=== PATIENT | female | born 1985 | race Caucasian/White ===

== ENCOUNTER 2019-10-03 12:45 | Emergency (ER) | payer OTHER, SELFPAY ==
[2019-10-03 12:51] VITALS: BP 126/72; PULSE 108; RESP 16; TEMP 36.7; O2SAT 100
--- NOTE | 2019-10-03 13:06 | ED.GENADULT ---
HPI - General Adult General Chief complaint: Urogenital-Female Stated complaint: kidney pain Time Seen by Provider: 10/03/19 13:06 Source: patient and RN notes reviewed Mode of arrival: ambulatory Limitations: no limitations History of Present Illness HPI narrative: 34-year-old female presents with urinary complaints for the past 4-5 days. Dysuria consist of RT flank pain. Tiffany says she has back pain prior to burning, frequency, and urgency once she gets to these symptoms she usually have to seek emergency care.? No treatment.? Denies injuries. Denies fever or chills. No significant pelvic pain. No abnormal vaginal discharge.? No concerns for STDs. Exacerbating factors urinating.? Denies hematuria or vaginal bleeding. Denies being , LMP 09/29/19. Denies nausea, vomiting, and abdominal pain.? Tolerating liquids well.? Remains active. The patient reports she have not been diagnosed with COVID-19. The patient reports she is not waiting for the results of a COVID-19 lab test. Tiffany says her and her family was tested 3 weeks ago and was NEGATIVE. The patient reports she do not have fever, chills, weakness, fatigue, myalgia, or facial swelling. The patient reports she do not have a new or worsening cough or shortness of breath. Denies chest pain. The patient reports she do not have any rhinorrhea, congestion, sore throat, and diarrhea. Denies recent traveling. Denies concerns for COVID-19 or exposures been home with limited outdoor exposure except for essential household needs, work, and return home. At this time, patient is not suspected of having COVID-19. Some parts of this dictation were generated by voice recognition software and may contain typographical and/or grammatical inaccuracies. Related Data Allergies Allergy/AdvReac Type Severity Reaction Status Date / Time cyclobenzaprine Allergy Severe Rash Verified 10/03/19 13:02 Sulfa (Sulfonamide Allergy Severe Dyspnea / Verified 10/03/19 13:02 Antibiotics) SOB amoxicillin Allergy Intermediate Rash Verified 10/03/19 13:02 tramadol Allergy Intermediate Rash Verified 10/03/19 13:02 Penicillins AdvReac Intermediate Rash Verified 10/03/19 13:02 Review of Systems Review of Systems: Narrative: CONSTITUTIONAL: Denies fever, chills, sweats. EYES: Denies visual changes, redness, discharge. ENT: Denies rhinorrhea, congestion, sore throat, otalgia. CARDIOVASCULAR: Denies chest pain, palpitations, edema. RESPIRATORY: Denies dyspnea, wheezing, cough. GASTROINTESTINAL: Denies abdominal pain, nausea, vomiting, diarrhea. GENITOURINARY: Complains of dysuria consists of RT flank pain. Denies burning, frequency, and urgency, hematuria, abnormal discharge. SKIN: Denies rash or itching. MUSCULOSKELETAL: Denies acute back pain, joint pain, or myalgia. NEUROLOGIC: Denies numbness or focal weakness. PSYCHIATRIC: Denies anxiety or depression. All systems reviewed & are unremarkable except as noted in HPI and below. [facility] Past Medical History Medical History (Updated 10/03/19 @ 13:31 by SILVIA Holguin) Anxiety Asthma delivery delivered Factor V Leiden History of manic depressive disorder Manic bipolar I disorder Obese Post traumatic stress disorder (PTSD) Surgical History Surgical History (Updated 10/03/19 @ 13:31 by SILVIA Holguin) H/O section History of adenoidectomy History of dilation and curettage History of tonsillectomy Hx of sinus surgery Family History Family History (Updated 10/03/19 @ 13:34 by SILVIA Holguin) Father Diabetes mellitus Cerebrovascular accident Factor V Leiden Obese Mother Depression Obese Bipolar disorder Cervical cancer Social History Social History (Updated 10/03/19 @ 13:37 by SILVIA Holguin) Smoking status: Former smoker Tobacco type: cigarettes Smoking end date: 03/07/07 Additional smoking assessment comments: Smoked for 9 years Living arrangements: [place]
--- NOTE | 2019-10-03 13:21 | PC.NURSE ---
NO UC ORDERED PER SONIDO
[2019-10-03 13:25] VITALS: PULSE 100
== END 2019-10-03 13:25 | disposition home or self-care (01) ==
PROVIDERS: Emergency Provider Nurse Practitioner Family; PCP Family Medicine
DX: R30.0 Dysuria (principal); Z87.891 Personal history of nicotine dependence; J45.909 Unspecified asthma, uncomplicated; D68.51 Activated protein C resistance
CPT/HCPCS: 81003; 99213; G0463

== ENCOUNTER 2020-09-25 16:44 | Emergency (ER) | payer OTHER, SELFPAY ==
[2020-09-25 16:50] VITALS: BP 158/89; PULSE 115; RESP 20; TEMP 37.1; O2SAT 98
--- NOTE | 2020-09-25 16:57 | ED.DIZZY ---
HPI - Dizziness General Chief Complaint: Dizziness Stated Complaint: dizzy walking alyson renner Time Seen by Provider: 09/25/20 16:58 Source: patient and RN notes reviewed History of Present Illness HPI Narrative: Patient is a 35-year-old female who presents the urgent care with complaints of dizziness. Patient states that it started Tuesday with ringing in the ears and then she felt loopy and dizzy on Tuesday . Patient states that symptoms started to improve slightly and then Tuesday exacerbated again after taking a shower and the water getting in her ears. Patient states that her friend told her that she was walking sideways . Patient states that she feels that the room is spinning on occasion but is not consistent. Patient denies of any recent head injury or new medications. Patient denies of any use of [id number] medication for symptoms. Denies of any sick symptoms. Denies of any known exposure to Covid. No other acute complaints. No acute distress noted. Patient aware of the plan of care. Some parts of this dictation were generated by voice recognition software and may contain typographical and/or grammatical inaccuracies. Related Data Allergies Allergy/AdvReac Type Severity Reaction Status Date / Time cyclobenzaprine Allergy Severe Rash Verified 09/25/20 16:51 Sulfa (Sulfonamide Allergy Severe Dyspnea / Verified 09/25/20 16:51 Antibiotics) SOB amoxicillin Allergy Intermediate Rash Verified 09/25/20 16:51 tramadol Allergy Intermediate Rash Verified 09/25/20 16:51 Penicillins AdvReac Intermediate Rash Verified 09/25/20 16:51 Review of Systems Review of Systems: Narrative: CONSTITUTIONAL: Denies fever, chills, or sweats. EYES: Denies visual changes, redness, or discharge. ENT: Denies rhinorrhea, congestion, sore throat, or otalgia. Reports of intermittent tinnitus CARDIOVASCULAR: Denies chest pain, palpitations, or edema. RESPIRATORY: Denies cough or dyspnea. GASTROINTESTINAL: Denies abdominal pain, nausea, vomiting, or diarrhea. GENITOURINARY: Denies dysuria or hematuria. SKIN: Denies rash or itching. MUSCULOSKELETAL: Denies back pain, joint pain, or myalgia. NEUROLOGIC: Denies headache, numbness, or weakness. Reports of intermittent dizziness All other systems reviewed are negative, except as documented in HPI. [facility] Past Medical History Medical History (Updated 09/25/20 @ 17:17 by SILVIA Fuller) Anxiety Asthma delivery delivered Factor V Leiden History of manic depressive disorder Manic bipolar I disorder Obese Post traumatic stress disorder (PTSD) Surgical History Surgical History (Updated 10/03/19 @ 13:31 by SILVIA Holguin) H/O section History of adenoidectomy History of dilation and curettage History of tonsillectomy Hx of sinus surgery Family History Family History (Updated 10/03/19 @ 13:34 by SILVIA Holguin) Father Diabetes mellitus Cerebrovascular accident Factor V Leiden Obese Mother Depression Obese Bipolar disorder Cervical cancer Social History Social History (Updated 10/03/19 @ 13:37 by SILVIA Holguin) Smoking status: Former smoker Tobacco type: cigarettes Smoking end date: 03/07/07 Additional smoking assessment comments: Smoked for 9 years Gender identity (if verbalized by the patient): Female Comments At the time of my signature, I reviewed and agree with the nursing past medical, surgical, social, and family history. There is no relevant family history pertinent to the patient complaint. Exam Narrative: Exam Narrative: GENERAL: This is a well-nourished, well-developed patient, in no apparent distress. HEAD: normocephalic, atraumatic. EYES: PERRL. Sclera clear/white. Vision is grossly intact. EARS: External ears normal, auditory canals clear and without drainage, mild fluid noted behind bilateral TMs without otitis. TMs normal without perforation. Hearing grossly intact. NOSE: External nose n
== END 2020-09-25 17:30 | disposition home or self-care (01) ==
PROVIDERS: Emergency Provider Nurse Practitioner Family; PCP Family Medicine
DX: R42 Dizziness and giddiness (principal); Z87.891 Personal history of nicotine dependence
CPT/HCPCS: 99213; G0463

== ENCOUNTER 2021-12-03 09:08 | Emergency (ER) | payer OTHER, SELFPAY ==
--- NOTE | 2021-12-03 09:19 | ED.BACK ---
HPI - Back Pain/Injury General Chief Complaint: Back Pain/Injury Stated Complaint: Back Pain Time Seen by Provider: 12/03/21 09:57 Source: patient and RN notes reviewed Mode of arrival: ambulatory Limitations: no limitations History of Present Illness HPI Narrative: 36-year-old female presents with concern for left-sided mid back pain. She reports 2 weeks ago she slept in a car for 4 days, she reports she had some mild back pain after that. Reports over the last 2 weeks she is taken anti-inflammatories used heat, ice without improvement. Reports the pain is worsened over the last 4 days causing her trouble sleeping at night. She denies perianal anesthesia, loss of bowel or bladder function, weakness in any extremity, abdominal pain, fever. She denies any direct trauma or injury. She denies urine frequency, dysuria, hematuria. Reports pain is worsened by movements, bending, twisting. MD elicited complaint: back pain Related Data Home Medications Medication Instructions Recorded Confirmed ergocalciferol (vitamin D2) 1,250 12/03/21 mcg (50,000 unit) capsule febuxostat 40 mg tablet (Uloric) mg 12/03/21 indomethacin 50 mg capsule mg 12/03/21 lisinopril 20 tablet 12/03/21 mg-hydrochlorothiazide 12.5 mg tablet montelukast 10 mg tablet mg 12/03/21 Allergies Allergy/AdvReac Type Severity Reaction Status Date / Time cyclobenzaprine Allergy Severe Rash Verified 12/03/21 10:11 Sulfa (Sulfonamide Allergy Severe Dyspnea / Verified 12/03/21 10:11 Antibiotics) SOB amoxicillin Allergy Intermediate Rash Verified 12/03/21 10:11 tramadol Allergy Intermediate Rash Verified 12/03/21 10:11 Penicillins AdvReac Intermediate Rash Verified 12/03/21 10:11 Review of Systems Review of Systems: CONSTITUTIONAL: Denies malaise, chills, sweats, or fever. CARDIOVASCULAR: Denies chest pain, palpitations, or edema. RESPIRATORY: Denies cough or dyspnea. GASTROINTESTINAL: Denies abdominal pain, nausea, vomiting, diarrhea, loss of bowel function GENITOURINARY: Denies dysuria, hematuria, frequency, loss of bladder function. SKIN: Denies rash or itching. MUSCULOSKELETAL: Reports left mid back pain NEUROLOGIC: Denies numbness, weakness, or headache. All systems reviewed & are unremarkable except as noted in HPI and below PMF[facility] Past Medical History Medical History (Updated 12/03/21 @ 10:10 by Kenna Walker NP) Anxiety Asthma delivery delivered Factor V Leiden History of manic depressive disorder Manic bipolar I disorder Obese Post traumatic stress disorder (PTSD) Surgical History Surgical History (Updated 10/03/19 @ 13:31 by SILVIA Holguin) H/O section History of adenoidectomy History of dilation and curettage History of tonsillectomy Hx of sinus surgery Family History Family History (Updated 10/03/19 @ 13:34 by SILVIA Holguin) Father Diabetes mellitus Cerebrovascular accident Factor V Leiden Obese Mother Depression Obese Bipolar disorder Cervical cancer Social History Social History (Updated 10/03/19 @ 13:37 by SILVIA Holguin) Smoking status: Former smoker Tobacco type: cigarettes Smoking end date: 03/07/07 Additional smoking assessment comments: Smoked for 9 years Gender identity (if verbalized by the patient): Female Sexual Orientation (if Verbalized by the Patient): Straight or Heterosexual Comments At time of signature, agree with nursing past medical, surgical, social and family history. There is no relevant family history pertinent to the presenting complaint Exam Narrative: GENERAL: Well-appearing, well-nourished, and in no acute distress. HEAD: Normocephalic, atraumatic. EYES: PERRLA and EOMI. NECK: Supple. No lymphadenopathy. CHEST: Clear to auscultation. No respiratory distress. HEART: Regular rate and rhythm. Distal pulses palpable and equal, cap refill <3 seconds ABDOMEN: Soft, nontender, nondistended, normal active bowel
[2021-12-03 09:20] VITALS: BP 137/91; PULSE 120; RESP 20; TEMP 37.2; O2SAT 20
== END 2021-12-03 10:18 | disposition home or self-care (01) ==
PROVIDERS: Emergency Provider Nurse Practitioner
DX: M54.9 Dorsalgia, unspecified (principal); Z87.891 Personal history of nicotine dependence; J45.909 Unspecified asthma, uncomplicated; D68.51 Activated protein C resistance; E66.9 Obesity, unspecified; Z68.41 Body mass index [BMI] 40.0-44.9, adult
CPT/HCPCS: 81003; 99213; G0463

== ENCOUNTER 2022-01-30 18:47 | Emergency (ER) | payer OTHER, SELFPAY ==
[2022-01-30 18:53] VITALS: BP 134/91; PULSE 115; RESP 18; TEMP 36.9; O2SAT 99
--- NOTE | 2022-01-30 21:03 | ED.URI ---
HPI - URI/Sore Throat General Chief Complaint: Upper Respiratory Infection Stated Complaint: raspy voice Time Seen by Provider: 01/30/22 21:04 Source: patient, RN notes reviewed and old records reviewed Mode of arrival: ambulatory Limitations: no limitations History of Present Illness HPI Narrative: 36 year old female who presents to [facility] care with raspy voice with cough which started initially 3 weeks ago. Patient states she started on a new blood pressure medication and then developed cough which the doctor changed her medication but cough has lingered. Patient now reports that she has developed the hoarseness and sore throat also. Patient reports that she has been using cough drops for her symptoms. MD elicited complaint: cough, sore throat and other (hoarseness) Pain scale (0-10): 4 Treatments prior to arrival: other (cough drops) Related Data Home Medications Medication Instructions Recorded Confirmed febuxostat 40 mg tablet (Uloric) 40 mg PO DAILY 12/03/21 01/30/22 indomethacin 50 mg capsule 50 mg PO DAILY 12/03/21 01/30/22 montelukast 10 mg tablet 10 mg PO DAILY 12/03/21 01/30/22 amlodipine 10 mg tablet 10 mg PO DAILY 01/30/22 01/30/22 hydrochlorothiazide 12.5 mg capsule 12.5 mg PO DAILY 01/30/22 01/30/22 Allergies Allergy/AdvReac Type Severity Reaction Status Date / Time cyclobenzaprine Allergy Severe Rash Verified 01/30/22 19:48 Sulfa (Sulfonamide Allergy Severe Dyspnea / Verified 01/30/22 19:48 Antibiotics) SOB amoxicillin Allergy Intermediate Rash Verified 01/30/22 19:48 tramadol Allergy Intermediate Rash Verified 01/30/22 19:48 Penicillins AdvReac Intermediate Rash Verified 01/30/22 19:48 Review of Systems Review of Systems: CONSTITUTIONAL: Denies malaise, chills, sweats, or fever. EYES: Denies visual changes, redness, or discharge. ENT: Reports rhinorrhea, congestion,no sinus pain, otalgia, positive for sore throat. CARDIOVASCULAR: Denies chest pain, palpitations, or edema. RESPIRATORY: Reports cough.? Denies dyspnea. GASTROINTESTINAL: Denies abdominal pain, nausea, vomiting, diarrhea SKIN: Denies rash or itching. MUSCULOSKELETAL: Denies myalgia. NEUROLOGIC: Denies headache. All systems reviewed & are unremarkable except as noted in HPI and below PMFSH Past Medical History Medical History (Updated 01/31/22 @ 00:00 by Sher Romano) Anxiety Asthma delivery delivered Factor V Leiden History of manic depressive disorder Manic bipolar I disorder Obese Post traumatic stress disorder (PTSD) Surgical History Surgical History (Updated 10/03/19 @ 13:31 by SILVIA Holguin) H/O section History of adenoidectomy History of dilation and curettage History of tonsillectomy Hx of sinus surgery Family History Family History (Updated 10/03/19 @ 13:34 by SILVIA Holguin) Father Diabetes mellitus Cerebrovascular accident Factor V Leiden Obese Mother Depression Obese Bipolar disorder Cervical cancer Social History Social History (Updated 10/03/19 @ 13:37 by SILVIA Holguin) Smoking status: Former smoker Tobacco type: cigarettes Smoking end date: 03/07/07 Additional smoking assessment comments: Smoked for 9 years Gender identity (if verbalized by the patient): Female Sexual Orientation (if Verbalized by the Patient): Straight or Heterosexual Comments At time of signature, agree with nursing past medical, surgical, social and family history. There is no relevant family history pertinent to the presenting complaint Exam Narrative: GENERAL: Well-appearing, well-nourished, and in no acute distress. HEAD: Normocephalic EYES: PERRLA, conjunctivae clear ENT: Nares clear, turbinates edematous and erythematous, clear discharge. Mucous membranes moist. TM pearly marin with dull light reflex bilaterally; no tragal tenderness. Oropharynx erythematous without lesions. Tonsils not present, no throat exudate, no drooling
== END 2022-01-30 21:32 | disposition home or self-care (01) ==
PROVIDERS: Emergency Provider Registered Nurse
DX: J02.9 Acute pharyngitis, unspecified (principal); D68.51 Activated protein C resistance; Z87.891 Personal history of nicotine dependence
CPT/HCPCS: 87081; 87804; 87880; 99213; G0463

== ENCOUNTER 2022-11-01 17:10 | Emergency (ER) | payer OTHER, SELFPAY ==
--- NOTE | ~2022-11-01 | XR_ITS ---
EXAMINATION: XR knee RT min 4V DATE: 11/01/2022 18:03 INDICATION: Right knee pain. Fall. TECHNIQUE: 6 views of right knee were obtained. COMPARISON: None. FINDINGS: Bone alignment is normal. No fracture. There is mild osteoarthritis of medial and patellofe moral compartments. No knee joint effusion. IMPRESSION: 1. Mild right knee osteoarthritis. Reviewed, dictated and finalized at location E.
[2022-11-01 17:26] VITALS: BP 126/92; PULSE 87; RESP 16; TEMP 36.6; O2SAT 99
--- NOTE | 2022-11-01 17:42 | ED.FALL ---
HPI - Fall General Chief Complaint: Fall Stated Complaint: Fall Injury/Left Foot/Ankle/Right Knee Source: patient and RN notes reviewed History of Present Illness HPI Narrative: 37-year-old female presents to urgent care with complaints of right knee pain. Patient states this morning she fell down approximately 2 steps landing on her right knee. Patient states the right knee fell onto concrete. Patient denies any head injury or LOC. Denies any numbness or tingling. Patient has an Viral wrap in place. Patient is not taking medication for her symptoms. Related Data Home Medications Medication Instructions Recorded Confirmed febuxostat 40 mg tablet (Uloric) 40 mg PO DAILY 12/03/21 01/30/22 indomethacin 50 mg capsule 50 mg PO DAILY 12/03/21 01/30/22 montelukast 10 mg tablet 10 mg PO DAILY 12/03/21 01/30/22 amlodipine 10 mg tablet 10 mg PO DAILY 01/30/22 01/30/22 hydrochlorothiazide 12.5 mg capsule 12.5 mg PO DAILY 01/30/22 01/30/22 Allergies Allergy/AdvReac Type Severity Reaction Status Date / Time cyclobenzaprine Allergy Severe Rash Verified 01/30/22 19:48 Sulfa (Sulfonamide Allergy Severe Dyspnea / Verified 01/30/22 19:48 Antibiotics) SOB amoxicillin Allergy Intermediate Rash Verified 01/30/22 19:48 tramadol Allergy Intermediate Rash Verified 01/30/22 19:48 Penicillins AdvReac Intermediate Rash Verified 01/30/22 19:48 Review of Systems Review of Systems: CONSTITUTIONAL: Denies fever, chills, or sweats. EYES: Denies visual changes, redness, or discharge. ENT: Denies otalgia and sore throat CARDIOVASCULAR: Denies chest pain, palpitations, or edema. RESPIRATORY: Denies cough or dyspnea. GASTROINTESTINAL: Denies abdominal pain, nausea, vomiting, or diarrhea. GENITOURINARY: Denies dysuria or hematuria. SKIN: Denies rash or itching. MUSCULOSKELETAL: Right knee pain NEUROLOGIC: Denies headache, numbness, or weakness. Pertinent positives per HPI. ON LICENSE OF [facility] Past Medical History Medical History (Updated 11/01/22 @ 18:27 by Afua Johnson, PARVEZ) Anxiety Asthma delivery delivered Factor V Leiden History of manic depressive disorder Manic bipolar I disorder Obese Post traumatic stress disorder (PTSD) Surgical History Surgical History (Updated 10/03/19 @ 13:31 by SILVIA Holguin) H/O section History of adenoidectomy History of dilation and curettage History of tonsillectomy Hx of sinus surgery Family History Family History (Updated 10/03/19 @ 13:34 by SILVIA Holguin) Father Diabetes mellitus Cerebrovascular accident Factor V Leiden Obese Mother Depression Obese Bipolar disorder Cervical cancer Social History Social History (Updated 10/03/19 @ 13:37 by SILVIA Holguin) Smoking status: Former smoker Tobacco type: cigarettes Smoking end date: 03/07/07 Additional smoking assessment comments: Smoked for 9 years Living arrangements: with family Gender identity (if verbalized by the patient): Female Sexual Orientation (if Verbalized by the Patient): Straight or Heterosexual Comments At the time of my signature, I reviewed and agree with the nursing past medical, surgical, social, and family history. There is no relevant family history pertinent to the patient complaint. Exam Narrative: GENERAL: This is a well-nourished, well-developed patient, in no apparent distress. HEAD: normocephalic, atraumatic. EYES: Sclera clear/white. Vision is grossly intact. EARS: External ears normal, auditory canals clear and without drainage. Hearing grossly intact. NOSE: External nose normal with no obvious nasal discharge, nares without redness, no rhinorrhea. THROAT: Mucous membranes moist, posterior pharynx clear. NECK: Neck supple, non-tender without lymphadenopathy, masses or thyromegaly. CARDIOVASCULAR: Regular rate RESPIRATORY: No respiratory distress SKIN: warm, intact with no suspicious lesions or rash, good texture and turgor. NEURO: aw
== END 2022-11-01 18:31 | disposition home or self-care (01) ==
PROVIDERS: Emergency Provider Nurse Practitioner Family
DX: S80.01XA Contusion of right knee, initial encounter (principal); W10.9XXA Fall (on) (from) unspecified stairs and steps, initial encounter; J45.909 Unspecified asthma, uncomplicated; D68.51 Activated protein C resistance; F43.10 Post-traumatic stress disorder, unspecified; Z87.891 Personal history of nicotine dependence
CPT/HCPCS: 73564; 99213; G0463

== ENCOUNTER 2023-05-24 19:04 | Emergency (ER) | payer OTHER, SELFPAY ==
[2023-05-24 19:11] VITALS: BP 122/72; PULSE 87; RESP 20; TEMP 37.2; O2SAT 100
--- NOTE | 2023-05-24 19:31 | ED.URI ---
HPI - URI/Sore Throat General Chief Complaint: Upper Respiratory Infection Stated Complaint: throat History of Present Illness HPI Narrative: 37-year-old female presented for complaint sore throat x4 days. Started with headache and ear pain yesterday. Endorses painful swallow. Not taking anything for symptoms. She takes Singulair daily. She denies cough, shortness of breath, wheezing, nausea, vomiting, fevers or chills. Related Data Allergies Allergy/AdvReac Type Severity Reaction Status Date / Time cyclobenzaprine Allergy Severe Rash Verified 05/24/23 19:30 Sulfa (Sulfonamide Allergy Severe Dyspnea / Verified 05/24/23 19:30 Antibiotics) SOB amoxicillin Allergy Intermediate Rash Verified 05/24/23 19:30 tramadol Allergy Intermediate Rash Verified 05/24/23 19:30 Penicillins AdvReac Intermediate Rash Verified 05/24/23 19:30 Review of Systems Review of Systems: CONSTITUTIONAL: Denies body aches, fever, chills, or sweats. EYES: Denies visual changes, redness, or discharge. ENT: Denies rhinorrhea, congestion, reports sore throat, otalgia. CARDIOVASCULAR: Denies chest pain, palpitations, or edema. RESPIRATORY: Denies dyspnea. GASTROINTESTINAL: Denies abdominal pain, nausea, vomiting, or diarrhea. SKIN: Denies rash, itching, or wounds. MUSCULOSKELETAL: Denies back pain, joint pain, or myalgia. NEUROLOGIC: Denies headache PMFSH Past Medical History Medical History Anxiety Asthma delivery delivered Factor V Leiden History of manic depressive disorder Manic bipolar I disorder Obese Post traumatic stress disorder (PTSD) Surgical History Surgical History H/O section History of adenoidectomy History of dilation and curettage History of tonsillectomy Hx of sinus surgery Family History Family History Father Diabetes mellitus Cerebrovascular accident Factor V Leiden Obese Mother Depression Obese Bipolar disorder Cervical cancer Social History Social History Smoking status: Former smoker Tobacco type: cigarettes Smoking end date: 03/07/07 Additional smoking assessment comments: Smoked for 9 years Living arrangements: with family Gender identity (if verbalized by the patient): Female Sexual Orientation (if Verbalized by the Patient): Straight or Heterosexual Exam Narrative: GENERAL: well-appearing, no acute distress. EYES: conjunctivae clear ENT: Mucous membranes moist. Right TM pearly amrin with normal light reflex; Left TM erythematous, bulging and intact; canal not erythematous, no drainage no tragal tenderness. Oropharynx erythematous without lesions. Tonsils enlarged 1+ and without exudate. No drooling, no hoarseness, no trismus, uvula midline. No tripod positioning, hot potato voice, or soft palate swelling. CHEST: Clear to auscultation, breath sounds equal. No respiratory distress, speaks in full sentences. HEART: Regular rate and rhythm. No murmur heard. SKIN: Warm, dry, no rash. NEURO: Alert and oriented x3. Course Course Emergency Course: Patient is aware of diagnosis, understands and agrees to treatment plan. Anticipatory guidance given. Patient agrees to follow-up as directed and is aware of reasons to seek care at the emergency department. Portions of this record may have been created with voice recognition software Level of Care: Express Care Visit Vital Signs Vital signs: Vital Signs Temperature 98.9 F 05/24/23 19:11 Pulse Rate 87 05/24/23 19:11 Respiratory Rate 20 05/24/23 19:11 Blood Pressure 122/72 05/24/23 19:11 Pulse Oximetry 100 05/24/23 19:11 Oxygen Delivery Room Air 05/24/23 19:11 Temperature 98.9 F 05/24/23 19:11 Pulse Rate 87 05/24/23 19:11 Respiratory Rate 20 05/23
== END 2023-05-24 19:40 | disposition home or self-care (01) ==
PROVIDERS: Emergency Provider Nurse Practitioner Family
DX: H66.92 Otitis media, unspecified, left ear (principal); J02.9 Acute pharyngitis, unspecified; Z87.891 Personal history of nicotine dependence; J45.909 Unspecified asthma, uncomplicated; D68.51 Activated protein C resistance; E66.9 Obesity, unspecified; Z68.27 Body mass index [BMI] 27.0-27.9, adult
CPT/HCPCS: 87081; 87880; 99213; G0463

== ENCOUNTER 2023-11-17 14:56 | Emergency (ER) | payer OTHER, SELFPAY ==
[2023-11-17 15:06] VITALS: BP 144/91; PULSE 84; RESP 20; TEMP 36.8; O2SAT 100
--- NOTE | 2023-11-17 15:06 | ED.URI ---
HPI - URI/Sore Throat General Chief Complaint: Upper Respiratory Infection Stated Complaint: sinus infection/ears/headache/tired Source: patient and RN notes reviewed Mode of arrival: ambulatory Limitations: no limitations History of Present Illness HPI Narrative: 38 y/o female presented for c/o right ear pain and nasal congestion x5 days. Pain radiates from ear to throat and reports right sinus swelling. Also reports acid reflux symptoms for 10 days, for which she drinks chocolate milk. Denies cough, sob, wheezing, n/v/d/f/c. Takes daily allergy med. Took a dose of mucinex DM. MD elicited complaint: cough Related Data Home Medications Medication Instructions Recorded Confirmed amlodipine 10 mg tablet 10 mg PO DAILY 11/17/23 11/17/23 ergocalciferol (vitamin D2) 1,250 1,250 mcg PO WEEKLY 11/17/23 11/17/23 mcg (50,000 unit) capsule gabapentin 100 mg capsule 100 mg PO DAILY 11/17/23 11/17/23 montelukast 10 mg tablet 10 mg PO DAILY 11/17/23 11/17/23 naproxen 500 mg tablet 500 mg PO BID 11/17/23 11/17/23 Allergies Allergy/AdvReac Type Severity Reaction Status Date / Time cyclobenzaprine Allergy Severe Rash Verified 05/24/23 19:30 Sulfa (Sulfonamide Allergy Severe Dyspnea / Verified 05/24/23 19:30 Antibiotics) SOB amoxicillin Allergy Intermediate Rash Verified 05/24/23 19:30 tramadol Allergy Intermediate Rash Verified 05/24/23 19:30 Penicillins AdvReac Intermediate Rash Verified 05/24/23 19:30 Review of Systems Review of Systems: per HPI [facility] Past Medical History Medical History Anxiety Asthma delivery delivered Factor V Leiden History of manic depressive disorder Manic bipolar I disorder Obese Post traumatic stress disorder (PTSD) Surgical History Surgical History H/O section History of adenoidectomy History of dilation and curettage History of tonsillectomy Hx of sinus surgery Family History Family History Father Diabetes mellitus Cerebrovascular accident Factor V Leiden Obese Mother Depression Obese Bipolar disorder Cervical cancer Social History Social History Smoking status: Former smoker Tobacco type: cigarettes Smoking end date: 03/07/07 Additional smoking assessment comments: Smoked for 9 years Living arrangements: with family Gender identity (if verbalized by the patient): Female Sexual Orientation (if Verbalized by the Patient): Straight or Heterosexual Exam Narrative: GENERAL: well-appearing EYES: conjunctivae clear ENT: Mucous membranes moist. TM pearly marin with dull light reflex bilaterally; no tragal tenderness. Oropharynx mildly erythematous without lesions or exudate, no drooling, no hoarseness, no trismus, uvula midline. No tripod positioning, muffled voice, soft palate or pharyngeal wall bulging NECK: Supple. No lymphadenopathy CHEST: Clear to auscultation, breath sounds equal. No wheezing, rhonchi, rales, or stridor. No respiratory distress, speaks in full sentences. HEART: Regular rate and rhythm. No murmur heard. SKIN: Warm, dry, no rash. NEURO: Alert and oriented x3. PSYCH: Normal mood and affect Course Course Emergency Course: Patient is aware of diagnosis, understands and agrees to treatment plan. Anticipatory guidance given. Patient agrees to follow-up as directed and is aware of reasons to seek care at the emergency department. Portions of this record may have been created with voice recognition software Level of Care: Express Care Visit Vital Signs Vital signs: Vital Signs Temperature 98.2 F 11/17/23 15:06 Pulse Rate 84 11/17/23 15:06 Respiratory Rate 20 11/17/23 15:06 Blood Pressure 144/91 H 11/17/23 15:06 Pulse Oximetry 100 11/17/23 15:06 Oxygen Delivery Room Air
== END 2023-11-17 15:39 | disposition home or self-care (01) ==
PROVIDERS: Emergency Provider Nurse Practitioner Family
DX: J06.9 Acute upper respiratory infection, unspecified (principal); Z87.891 Personal history of nicotine dependence; J45.909 Unspecified asthma, uncomplicated; D68.51 Activated protein C resistance; E66.9 Obesity, unspecified; Z68.39 Body mass index [BMI] 39.0-39.9, adult
CPT/HCPCS: 99213; G0463

== ENCOUNTER 2024-02-07 15:44 | Emergency (ER) | payer OTHER, SELFPAY ==
[2024-02-07 15:54] VITALS: BP 134/97; PULSE 85; RESP 16; TEMP 36.5; O2SAT 100
--- NOTE | 2024-02-07 17:06 | ED_ITS ---
HPI - General Adult General Chief complaint: Skin/Abscess/Foreign Body Stated complaint: rash on right side face Source: patient Mode of arrival: ambulatory Limitations: no limitations History of Present Illness HPI narrative: Patient presents for evaluation of a rash to the right side of the face. Symptom onset today. She is in a lotion yesterday on her hands and face. She is now rash on her hands. She states that she applied Benadryl and hydrocortisone. Both seem to help. She had a burning sensation immediately after applying them. She was exposed to hand, foot and mouth disease. Denies history of HSV. No fever, chills, nausea or vomiting. Reports an itching sensation along the mandible bilaterally and to her anterior chest. Related Data Home Medications Medication Instructions Recorded Confirmed ergocalciferol (vitamin D2) 1,250 1,250 mcg PO WEEKLY 11/17/23 11/17/23 mcg (50,000 unit) capsule naproxen 500 mg tablet 500 mg PO BID 11/17/23 11/17/23 Allergies Allergy/AdvReac Type Severity Reaction Status Date / Time cyclobenzaprine Allergy Severe Rash Verified 02/07/24 16:57 Sulfa (Sulfonamide Allergy Severe Dyspnea / Verified 02/07/24 16:57 Antibiotics) SOB amoxicillin Allergy Intermediate Rash Verified 02/07/24 16:57 tramadol Allergy Intermediate Rash Verified 02/07/24 16:57 Penicillins AdvReac Intermediate Rash Verified 02/07/24 16:57 Review of Systems Review of Systems: CONSTITUTIONAL: Denies fever, chills, or sweats. EYES: Denies visual changes, redness, or discharge. ENT: Denies rhinorrhea, congestion, sore throat, or otalgia. CARDIOVASCULAR: Denies chest pain, palpitations, or edema. RESPIRATORY: Denies cough or dyspnea. GASTROINTESTINAL: Denies abdominal pain, nausea, vomiting, or diarrhea. GENITOURINARY: Denies dysuria or hematuria. SKIN: Reports itching to the face and chest. Reports rash to right side face. MUSCULOSKELETAL: Denies back pain, joint pain, or myalgia. NEUROLOGIC: Denies headache, numbness, dizziness, or weakness. PSYCHIATRIC: Denies anxiety or depression. [facility] Past Medical History Medical History Anxiety Asthma delivery delivered Factor V Leiden History of manic depressive disorder Manic bipolar I disorder Obese Post traumatic stress disorder (PTSD) Surgical History Surgical History H/O section History of adenoidectomy History of dilation and curettage History of tonsillectomy Hx of sinus surgery Family History Family History Father Diabetes mellitus Cerebrovascular accident Factor V Leiden Obese Mother Depression Obese Bipolar disorder Cervical cancer Social History Social History Smoking status: Former smoker Tobacco type: cigarettes Smoking end date: 03/07/07 Additional smoking assessment comments: Smoked for 9 years Living arrangements: with family Gender identity (if verbalized by the patient): Female Sexual Orientation (if Verbalized by the Patient): Straight or Heterosexual Exam Narrative: GENERAL: Well-appearing, well-nourished, and in no acute distress. HEAD: Normocephalic, atraumatic. EYES: PERRLA and EOMI. ENT: Nares clear, no rhinorrhea or epistaxis. Mucous membranes moist. Oropharynx without tonsillar hypertrophy exudate or other lesions. Bilateral TMs pearly marin nonbulging NECK: Supple. No adenopathy or masses. No carotid bruits or JVD CHEST: Clear to auscultation. No respiratory distress. No wheezes rales or rhonchi HEART: Regular rate and rhythm. No murmur heard. Normal peripheral pulses. ABDOMEN: Soft, nontender, nondistended, normal active bowel sounds. EXTREMITIES: Normal range of motion. No edema. SKIN: There is a slightly raised rough textured rash in a patchy distribution to the right side of her face. There is a light sandpaper-like erythematous rash to the anterior chest NEURO: No focal deficits. Alert and oriented x3. PSYCH: Normal mood and affect. Course Course Emergency Course: This is a 38-year-old female who presented for evaluation a rash to the face. I suspect this is an impetigo. Will discharge with cephalexin Medrol Dosepak. Bactrim viral cultures were obtained. Follow-up with primary provider. Go to the ER for worsening symptoms. Patient in agreement with plan care. Level of Care: Express Care Visit Vital Signs Vital signs: Vital Signs Temperature 36.5 C 02/07/24 15:54 Pulse Rate 85 02/07/24 15:54 Respiratory Rate 16 02/07/24 15:54 Blood Pressure 134/97 H 02/07/24 15:54 Pulse Oximetry 100 02/07/24 15:54 Oxygen Delivery Room Air 02/07/24 15:54 Temperature 36.5 C 02/07/24 15:54 Pulse Rate 85 02/07/24 15:54 Respiratory Rate 16 02/07/24 15:54 Blood Pressure 134/97 H 02/07/24 15:54 Pulse Oximetry 100 02/07/24 15:54 Oxygen Delivery Room Air 02/07/24 15:54 Medical Decision Making Vital Signs Vital Signs: Vital Signs Temperature 36.5 C 02/07/24 15:54 Pulse Rate 85 02/07/24 15:54 Respiratory Rate 16 02/07/24 15:54 Blood Pressure 134/97 H 02/07/24 15:54 Pulse Oximetry 100 02/07/24 15:54 Oxygen Delivery Room Air 02/07/24 15:54 Temperature 36.5 C 02/07/24 15:54 Pulse Rate 85 02/07/24 15:54 Respiratory Rate 16 02/07/24 15:54 Blood Pressure 134/97 H 02/07/24 15:54 Pulse Oximetry 100 02/07/24 15:54 Oxygen Delivery Room Air 02/07/24 15:54 Discharge Plan Discharge Clinical Impression: Facial rash Patient Disposition: Home, Self-Care Condition: Stable Instructions: Antibiotic Form, Acute Rash (ED) Patient Language: Kiswahili Prescriptions: New cephalexin 500 mg capsule 500 mg PO Q6H 10 Days Qty: 40 0RF methylprednisolone [Medrol (Tito)] 4 mg tablets,dose pack See Rx Instructions .ROUTE .COMPLEX Qty: 21 0RF Rx Instructions: for 6 days No Action ergocalciferol (vitamin D2) 1,250 mcg (50,000 unit) capsule 1,250 mcg PO WEEKLY naproxen 500 mg tablet 500 mg PO BID Follow-up/Referrals: Viki Obando [Other] Time of Disposition: 17:05
[2024-02-12 11:37] LABS: Source FACE
== END 2024-02-07 17:08 | disposition home or self-care (01) ==
PROVIDERS: Emergency Provider Nurse Practitioner
DX: R21 Rash and other nonspecific skin eruption (principal); Z87.891 Personal history of nicotine dependence; J45.909 Unspecified asthma, uncomplicated; D68.51 Activated protein C resistance; E66.9 Obesity, unspecified
CPT/HCPCS: 87070; 87075; 87205; 87255; 99213; G0463

== ENCOUNTER 2024-05-07 13:05 | Emergency (ER) | payer OTHER, SELFPAY ==
[2024-05-07 13:10] VITALS: BP 127/74; PULSE 94; RESP 16; TEMP 36.6; O2SAT 99
--- NOTE | 2024-05-07 13:17 | ED.EYEPROB ---
HPI - Eye Problem General Chief complaint: Eye Problems Stated complaint: needs eye drops Time Seen by Provider: 05/07/24 13:23 Source: patient Mode of arrival: ambulatory Limitations: no limitations History of Present Illness HPI Narrative: 38-year-old female presented for complaint of right eye redness and irritation, and foggy vision. Onset yesterday. Endorses frequent tearing. 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 Patient says she also has had a history of iritis. Patient currently denies eye pain, floaters, purulent discharge, itching, foreign body sensation or injury. states the eye feels raw. She applied [id number] eyedrops without any improvement. Denies headache, nausea vomiting, fevers or lethargy. MD chief complaint: eye pain Related Data Allergies Allergy/AdvReac Type Severity Reaction Status Date / Time cyclobenzaprine Allergy Severe Rash Verified 05/07/24 13:17 Sulfa (Sulfonamide Allergy Severe Dyspnea / Verified 05/07/24 13:17 Antibiotics) SOB amoxicillin Allergy Intermediate Rash Verified 05/07/24 13:17 tramadol Allergy Intermediate Rash Verified 05/07/24 13:17 latex Allergy Unknown Unknown Verified 05/07/24 13:17 Penicillins AdvReac Intermediate Rash Verified 05/07/24 13:17 Review of Systems Review of Systems: CONSTITUTIONAL: Denies body aches, fever, chills EYES:Endorses redness to right eye, tearing, foggy vision Denies FB sensation, photophobia, swelling or pain ENT: Denies rhinorrhea, congestion, sore throat, or otalgia. CARDIOVASCULAR: Denies chest pain, palpitations RESPIRATORY: Denies cough or dyspnea. GASTROINTESTINAL: Denies abdominal pain, nausea, vomiting, or diarrhea. SKIN: Denies rash, itching, or wounds. MUSCULOSKELETAL: Denies back pain, joint pain, or myalgia. NEUROLOGIC: Denies headache, numbness, tingling, or weakness. All systems reviewed & are unremarkable except as noted in HPI and below PMFSH Past Medical History Medical History Obese delivery delivered Post traumatic stress disorder (PTSD) Factor V Leiden Asthma Manic bipolar I disorder History of manic depressive disorder Anxiety Surgical History Surgical History History of dilation and curettage H/O section Hx of sinus surgery History of adenoidectomy History of tonsillectomy Family History Family History Father Diabetes mellitus Cerebrovascular accident Factor V Leiden Obese Mother Depression Obese Bipolar disorder Cervical cancer Social History Social History Smoking status: Former smoker Tobacco type: cigarettes Smoking end date: 03/07/07 Additional smoking assessment comments: Smoked for 9 years Living arrangements: with family Gender identity (if verbalized by the patient): Female Sexual Orientation (if Verbalized by the Patient): Straight or Heterosexual Comments At time of signature, I have reviewed and agree with nursing past medical, surgical, social and family history unless otherwise noted. Please see nursing chart for further information. There is no relevant family history pertinent to the presenting complaint Exam Narrative: GENERAL: Well-appearing HEAD: Normocephalic, atraumatic. EYES: right conjunctival injection, frequent tearing. PERRLA, right pupil slower to respond. no eye lid swelling/redness c/w stye. EOMI. Lid eversion shows no FB. ENT: Mucous membranes pink and moist. No rhinorrhea. TMs normal bilaterally. Throat normal. Uvula midline. CHEST: Clear to auscultation. SKIN: Warm, dry, no rash. Normal skin turgor. NEURO: No focal deficits. Alert and oriented x3 PSYCH: Normal affect. Course Course Emergency Course: Patient is aware of diagnosis, understands and agrees to treatment plan. Anticipatory guidance given. Patient agrees to follow-up as directed and is aware of reasons to seek care at the emergency department. Portions of this record may have been created with voice recognition software Level of Care: Express Care Visit Vital Signs Vital signs: Vital Signs Temperature 97.9 F 05/07/24 13:10 Pulse Rate 94 05/07/24 13:10 Respiratory Rate 16 05/07/24 13:10 Blood Pressure 127/74 05/07/24 13:10 Pulse Oximetry 99 05/07/24 13:10 Oxygen Delivery Room Air 05/07/24 13:10 Temperature 97.9 F 05/07/24 13:10 Pulse Rate 94 05/07/24 13:10 Respiratory Rate 16 05/07/24 13:10 Blood Pressure 127/74 05/07/24 13:10 Pulse Oximetry 99 05/07/24 13:10 Oxygen Delivery Room Air 05/07/24 13:10 MDM - Eye Problem MDM Narrative Medical decision making narrative: Discussed physical exam findings. Given her history of iritis she is advised to contact [facility] today for f/u appointment, v/u. Advised supportive measures and signs/symptoms to go to the ER. Pt is appropriate for outpt treatment and f/u. Differential Diagnosis Differential diagnosis: Likely corneal abrasion, conjunctivitis, acute iritis, periorbital cellulitis, subconjunctival hemorrhage, glaucoma, corneal ulcer and other Discharge Plan Discharge Clinical Impression: Corneal irritation of right eye Patient Disposition: Home, Self-Care Condition: Stable Instructions: Iritis (ED) Additional Instructions: Avoid touching or rubbing your eye. Use over the counter lubricating eye drops as needed for irritation Use a warm or cool washcloth on your eye for comfort Use eyedrops as directed Practice good handwashing and hygiene to prevent spread of infection Use new makeup, lashes etc. You may take Tylenol or ibuprofen for pain Follow-up with PCP Follow up with applications development analyst in 2 days. Call today to schedule a follow up appointment. Go to the emergency room if you have severe pain or pressure behind your eye, difficulty seeing, or other severe symptoms If left untreated, eye problems such as iritis can lead to serious complications, such as: glaucoma, cataracts, and permanent vision loss [facility] [phone] [facility] [phone] [facility] [phone] [facility] [phone] Patient Language: Mauritanian Prescriptions: New ofloxacin 0.3 % drops See Rx Instructions .ROUTE .COMPLEX Qty: 10 0RF Rx Instructions: put 2 drops into right every 4 h x 2 days, then 2 drops 4 times/day days 3-7 ketorolac 0.5 % drops 1 drp RIGHT EYE Q6H PRN (Reason: pain) Qty: 3 0RF Follow-up/Referrals: PHYSICIAN NOT ON STAFF,NONSTAFF [Primary Care Provider] - Time of Disposition: 13:47
== END 2024-05-07 13:51 | disposition home or self-care (01) ==
PROVIDERS: Emergency Provider Nurse Practitioner Family
DX: H18.891 Other specified disorders of cornea, right eye (principal); Z87.891 Personal history of nicotine dependence; D68.51 Activated protein C resistance; J45.909 Unspecified asthma, uncomplicated; E66.9 Obesity, unspecified; Z68.41 Body mass index [BMI] 40.0-44.9, adult
CPT/HCPCS: 99213; G0463

== ENCOUNTER 2024-09-16 12:19 | Emergency (ER) | payer OTHER, SELFPAY ==
--- NOTE | ~2024-09-16 | XR_ITS ---
Clinical Indication: Decreased breath sounds, shortness of breath PA and lateral views of the chest: Comparison: None Findings: The lungs are clear, without evidence of focal consolidation or pleural effusion. Cardiome diastinal silhouette is within normal limits. Bones and soft tissues are unremarkable. Impression: Normal chest. Reviewed, dictated and finalized at location . Impression: Normal chest.
--- OUTSIDE RECORDS SUMMARY | 2024-09-16 12:21 | XMS_ITS | Clinical Summary ---
Author Organization [facility] Address [address] [place] [address] Phone Care Team Providers Care Narrow Gauge Engineer Name Role Phone Viki Obando APRN, HARD ROCK DRILL OPERATOR Primary Care P rovider Mart Melton MD Unavailable [phone] Allergies Active Allergy Reactions Criticality Noted Date Comments Cyclobenzaprine Hcl Other (see Comments) 2015 DOESN'T LIKE SIDE EFFECTS Latex Hives 02/28/2017 Penicillins Other (see Comments) 03/22/2015 Sulfa Antibiotics Itching 03/22/2015 A BABY Ketorolac Tromethamine Rash 03/22/2015 Tramadol Rash 03/22/2015 Medications Ascorbic Acid (VITAMIN C PO) Take by mouth. Active Multiple Vitamin (MULTIVITAMIN PO) Take by mouth. Active other by Other route. Tumeric, lelia and black pepper gummy Active other by Other route. Black [place] gummy Active Active Problems Problem Noted Date Diagnosed Date Thrombocytosis 05/11/2024 Leukocytosis 05/11/2024 Migraine with status migrainosus, not intractabl e 03/13/2021 Class 3 severe obesity due t o excess calories without serious comorbidity with body mass index (BMI) of 40.0 to 44.9 in adult 03/13/2021 Chronic gout without tophus 03/13/2021 Factor V Leiden 03/13/2021 Overview (03/13/2021): has 1 gene, father has same Encounters Date Type Department Care Team Description 07/08/2024 Results Follow-Up [facility] Neurology [facility] [address] [place] [address] Dennis Parikh MD EEG AWAKE OR DROWSY ROUTINE 07/06/2024 9:00 AM CDT [facility] [address] [place] [address] Dennis Parikh MD Staring episodes Discharge Disposition: Discharged to home or Selfcare 07/06/2024 Travel 06/29/2024 9:00 AM CDT Office Visit [facility] Neu[facility] [address] [place] [address] Dennis Parikh MD Staring episodes Discharge Disposition: Discharged to home or Selfcare 06/28/2024 Travel from Last 3 Months Immunizations Immunization Administration Dates Next Due Hepatitis A Vaccine 06/06/2015 Hepatitis A Vaccine,unspecified Formulation 01/05 TDAP Vaccine 04/15/2023 Tetanus Toxoid, Unspecified Formulation 03/07/19 14 Family History Medical History Relation Name Comments Bleeding Disorder Father Douglas Espino Fa ctor 5 Diabetes Father Douglas de la fuente High Cholesterol Father Douglas de la fuente Stroke Father Douglas de la fuente Aneurysm Maternal Grandfather Hypertension Maternal Grandfather Chronic Obstructive Pulmonary Disease Maternal Grandmother Congestive Heart Failure Maternal Grandmother Diabetes Maternal Grandmother High Cholesterol Maternal Grandmother Cancer Mother Kenisha cotton cervical, end ometrial Congestive Heart Failure Mother Kenisha cotton Diabetes Mother Kenisha cotton High Cholesterol Mother Kenisha cotton Hypertension Mother Kenisha cotton Kidney Disease Mother Kenisha cotton Relation Name Status Comments Father Douglas de la fuente Alive Half-Brother Alive Maternal Grandfather Alive Maternal Grandmother Mother Kenisha cotton Alive Paternal Grandfather Alive Paternal Grandmother Alive Social History Tobacco Use Types Packs/Day Years Used Date Smoking Tobacco: Former Cigarettes Q uit: 07/22/2008 Smokeless Tobacco: Never Tobacco Cessation:Counseling Given: Not Answered Alcohol Use Standard Drinks/Week Comments Not Currently 0 (1 standard drink = 0.6 oz pur e alcohol) rarely [facility] Utilities Answer Date Recorded In the past 12 months has th e electric, gas, oil, or water company threatened to shut off services in your home? No 11/28/2023 Social Connection and Isolation Panel Answer Date Recorded In a typical week, how many times do you talk on the phone with family, friends, or neighbors? Three times a week 11/28/2023 How often do you get togethe r with friends or relatives? Once a week 11/28/2023 How often do you attend chur or sikhism services? Patient declined 11/28/2023 Do you belong to any clubs o r organizations such as quaker groups, unions, fraternal or athletic groups, or school groups? No 11/28/2023 How often do you attend meet ings of the clubs or organizations you belong to? Patient declined 11/28/2023 Are you , , di vorced, , never , or living with a partner? 11/28/2023 AUDIT-C Answer Date Recorded Q1: How often do you have a drink containing alc ohol? Monthly or less 11/28/2023 Q2: How many drinks containi ng alcohol do you have on a typical day when you are drinking? 1 or 2 11/28/2023 Q3: How often do you have si x or more drinks on one occasion? Less than monthly 11/28/2023 Overall Financial Resource Strain (CARDIA) Answe r Date Recorded How hard is it for you to pa y for the very basics like food, housing, medical care, and heating? Somewhat hard 11/28/2023 PHQ-2 Answer Date Recorded Total Score - Questions 1-9 0 02/0 06/2024 [facility] [place] of Occupat ional Health - Occupational Stress Questionnaire Answer Date Recorded Do you feel stress - tense, restless, nervous, or anxious, or unable to sleep at night because your mind is troubled all the time - these days? To some extent 11/28/2023 Exercise Vital Sign Answer Date Recorde d On average, how many days pe r week do you engage in moderate to strenuous exercise (like a brisk walk)? 5 days 11/28/2023 On average, how many minutes do you engage in exercise at this level? 50 min 11/28/2023 Hunger Vital Sign Answer Date Recorded Within the past 12 months, y ou worried that your food would run out before you got the money to buy more. Never true 11/28/19 24 Within the past 12 months, t he food you bought just didn't last and you didn't have money to get more. Never true 11/28/2023 PRAPARE - Transportation Answer Date Re corded In the past 12 months, has l ack of transportation kept you from medical appointments or from getting medications? No 11/06 In the past 12 months, has l ack of transportation kept you from meetings, work, or from getting things needed for daily living? No 11/28/2023 Housing Stability Vital Sign Answer Obi e Recorded In the last 12 months, was t here a time when you were not able to pay the mortgage or rent on time? No 11/28/2023 Number of Times Moved in the Last Year Not on fi le 11/28/2023 At any time in the past 12 [facility], were you homeless or living in a intermediate (including now)? No 11/28/2023 Education Answer Date Recorded What is the highest level of school you have completed or the highest degree you have received? 12th grade 04/01/2021 Sexually Active Control Partners Comments Yes None Male, Female HAD VAS ECTOMY Comments No Sex and Gender Information Value Date Recorded Sex Assigned at Not on file Legal Sex Female 7:13 PM CDT Gender Identity Not on file Sexual Orientation Not on file Last Filed Vital Signs Vital Sign Reading Time Taken Comments Blood Pressure 130/94 06/29/2024 9:05 AM CDT Pulse 75 06/29/2024 9:05 AM CDT Temperature 36.3 C (97.3 F) 06/29/2024 9:05 AM CDT Respiratory Rate 18 06/29/2024 9:05 AM CDT Oxygen Saturation 93% 06/29/2024 9:05 AM CDT Inhaled Oxygen Concentration - - Weight 85.3 kg (188 lb) 06/29/2024 9:05 AM CDT Height 147.3 cm (4' 10) 06/29/2024 9:05 AM CDT Body Mass Index 39.29 06/29/2024 9:05 AM CDT Plan of Treatment Upcoming Encounters Date Type Department Care Team (Late st Contact Info) Description 12/04/2024 10:00 AM CDT [facility] [address] [place] [address] Anthony Marquezlene August, PAC [address] [place] [address] Discharge Disposition: Discharged to home or Selfcare 12/11/2024 10:00 AM CDT [facility] [address] [place] [address] MarquezAnthonyLucina August, PAC [address] [place] [address] Discharge Disposition: Discharged to home or Selfcare 12/25/2024 11:30 AM CDT Office Visit [facility] - [facility] [address] [place] [address] Dennis Parikh MD [address] [place] [address] Health Maintenance Due Date Last Done Comments Hepatitis C Virus (HCV) Screening 1987 Human Papillomavirus (HPV) Immunization (1 - 3-dose series) 06/17/2002 Hepatitis B Immunization (1 of 3 - 19+ 3-dose series) 06/17/2006 SARS-COV-2 Immunization ( - 2023- season) 2023 Influenza Immunization (#1) 2024 Pap Smear 11/07/2026 11/08/2023, 12/05/2020 Cervical Cancer Screening (CCS) 11/07/2028 HPV/Cotest 11/07/2028 11/08/2023, 11/08/2023 Td Immunization Every 10 Yea rs (Adults With 1 Tdap) 04/15/2033 04/15/2023 Respiratory Syncytial Virus (RSV) Immunization (Adult) (1 - 1-dose 75+ series) 06/17/2062 DTaP/Tdap/Td Immunization Discontinued 04/15/2023 Meningococcal Immunization (ACWY) Aged Out No longer eligible based on patient's age to complete this topic Pneumococcal Immunization Combined Aged Out No longer eligible based on patient's age to complete this topic Rotavirus Immunization Aged Out No lo nger eligible based on patient's age to complete this topic Procedures Procedure Name Priority Date/Time Associated Diagnosis Comments EEG AWAKE OR DROWSY ROUTINE Routine 07/06/2024 9:00 AM CDT Staring episodes HUMAN PAPILLOMA VIRUS (HPV) 11/08/2023 12:00 AM CDT PATHOLOGY CYTOLOGY CLAY TRANSPORTER 11/08/2023 12:00 AM CDT from Last 3 Months or Most Recently Relevant to Health Maintenance Results * EEG AWAKE OR DROWSY ROUTINE (07/06/2024 9:00 AM CDT) Narrative Dennis Parikh MD - 07/06/2024 9:00 AM CDT Dennis Parikh MD 07/08/2024 9:16 AM Electroencephalography Date of EE07/06/24 Clinical History: The patient is a 39 year old female who has been experiencing episodes of seizure. EEG Description: This EEG recorded on a [place] with 18 cranial leads and an EKG. The International 10-20 system was used for electrode placement. Background: The recording was done during wakefulness, drowsiness and sleep. There was a normal 9 hz posterior dominant rhythm, with a normal posterior to anterior gradient. Sleep: Normal sleep architecture noted including sleep spindles, posts and vertex waves. Activation Procedures: Photic stimulation shows good driving. Hyperventilation produced no epileptic discharges. Epileptic Discharges: No epileptic discharges noted. Interpretation: This is a normal EEG during wakefulness, drowsiness and sleep. No epileptic discharges were seen. A normal EEG does not rule out seizure and clinical correlation is recommended. us Dennis Parikh MD NEUROLOGY ORDERABLES Edited Result - Final * PATHOLOGY CYTOLOGY CLAY TRANSPORTER (11/08/2023 12:00 AM CDT) 11/08/2023 us Provider Scan PATHOLOGY/CYTOLOGY ORDERABLES Fi nal Result SCAN * HUMAN PAPILLOMA VIRUS (HPV) (11/08/2023 12:00 AM CDT) 11/08/2023 us Provider Scan LAB SEND OUTS Final Result SCAN from Last 3 Months or Most Recently Relevant to Health Maintenance Insurance MEDICAID [employer] Care Teams Narrow Gauge Engineer Relationship Specialty Start Date End Date Viki Obando APRN, HARD ROCK DRILL OPERATOR [address] [place] [address] PCP - General Advanced Practice Nurse 03/10/21 Mart Melton MD [address] [address] Consulting Physician General Surgery 07/21/21
--- OUTSIDE RECORDS SUMMARY | 2024-09-16 12:21 | XMS_ITS | Encounter Summary ---
Author Organization [facility] Address [address] [place] [address] Phone Care Team Providers Care Warehouse Incentive Selector Name Role Phone Viki Obando APRN, CNP Primary Care P rovider Mart Melton MD Unavailable [phone] Encounter Details Date Type Department Care Team (Late st Contact Info) Description 08/07/2021 Transcribe Orders [facility] Preop/Pacu II [address] [place] [id number] Heber Rouse, DO [address] [place] [address] Pre-op testing (Primary Dx) Social History Tobacco Use Types Packs/Day Years Used Date Smoking Tobacco: Former Cigarettes Q uit: 07/22/2008 Smokeless Tobacco: Never Alcohol Use Standard Drinks/Week Comments Yes 0 (1 standard drink = 0.6 oz pur e alcohol) ONCE A MONTH HAS A FEW Education Answer Date Recorded What is the [...] on file Sexual Orientation Not on file COVID-19 Exposure Response Date Recorded In the last 10 days, have nikki u been in contact with someone who was confirmed or suspected to have Coronavirus/COVID-19? No / Unsure 08/10/2021 10:44 AM CDT documented as of this encounter Plan of Treatment Upcoming Encounters Date Type Department Care Team (Late st Contact Info) Description 12/04/2024 10:00 AM CDT [facility] [address] [place] [address] Lucina Marquez Carolyn, PAC [address] [place] [address] Discharge Disposition: Discharged to home or Selfcare 12/11/2024 10:00 AM CDT [facility] [address] [place] [address] Lucina Marquez August, PAC [address] [place] [address] Discharge Disposition: Discharged to home or Selfcare 12/25/2024 11:30 AM CDT Office Visit [facility] [address] [place] [address] Dennis Parikh MD [address] [place] [address] documented as of this encounter Results * HEMOGLOBIN & HEMATOCRIT (H&H) (08/10/2021 11:18 AM CDT) HEMOGLOBIN (HGB) 14.3 12.0 - 15.8 g/dL 08/10/2021 11:57 AM CDT [facility] HEMAT[facility] (HCT) 43.3 36.0 - 47.0 % 08/10/2021 11:57 AM CDT [facility] Blood Venipuncture / Unknown 08/10/2021 11:18 AM CDT 08/10/2021 11:55 AM CDT us Heber Rouse DO HEMATOLOGY ORDERABL ES Final Result [facility] [address] [place] [address] documented in this encounter Visit Diagnoses Diagnosis Pre-op testing- Primary Preoperative examination, unspecified documented in this encounter Additional Health Concerns Infection Onset Date Last Indicated Resolved Time COVID - 19 02/20/2023 02/20/2023 03/02/2023 12:1 8 AM ARABIC LINGUIST COVID - 19 03/07/2023 03/07/2023 03/17/2023 12:1 6 AM ARABIC LINGUIST COVID - 19 11/20/2023 11/20/2023 11/20/2023 5:08 PM CDT COVID - 19 11/28/2023 11/28/2023 11/28/2023 1:39 PM CDT COVID - 19 Confirmed 11/28/2023 11/28/2023 024 12:16 AM CDT documented as of this encounter Care Teams Warehouse Incentive Selector Relationship Specialty Start Date End Date Viki Obando, ORIGINATION SPECIALIST, CHEMICAL DEPENDENCY PROFESSIONAL [address] [place] [address] PCP - General Advanced Practice Nurse 03/10/21 Mart Melton MD [address] [address] Consulting Physician General Surgery 07/21/21 documented as of this encounter
--- OUTSIDE RECORDS SUMMARY | 2024-09-16 12:21 | XMS_ITS | Encounter Summary ---
Author Organization [facility] Address [address] [facility] [place] [address] Phone Care Team Providers Care Carbon Paper Machine Operator Name Role Phone Adriel Barrios MD Primary Care Provider [phone] Viki Obando APRN, CNP Primary Care P rovider Mart Melton MD Unavailable [phone] Encounter Details Date Type Department Care Team (Late st Contact Info) Description 03/09/2021 Telephone [facility] Hospitalist Program [address] [place] [address] Provider, None [place] Social History Tobacco Use Types Packs/Day Years Used Date Smoking Tobacco: Former Smokeless Tobacco: Never Alcohol Use Standard Drinks/Week Comments Yes 1 (1 standard drink = 0.6 oz pur e alcohol) occasionally Comments No Sex and Gender Information Value Date Recorded Sex Assigned at Not on file Legal Sex Female 7:13 PM CDT Gender Identity Not on file Sexual Orientation Not on file documented as of this encounter Miscellaneous Notes * Telephone Encounter - Nino Hightower - 03/09/2021 12:06 PM CST ----- Message from Viktoriya Liu sent at 03/09/2021 9:41 AM PYROTECHNIST ----- Regarding: New Pt New [facility] Primary Provider Request Insurance of patient: PRETTY Name of person calling: Tiffany Lux Relationship to patient: self Preferred phone number: [phone] Alternate phone number: n/a Region / Office location preference: [facility] [place] Provider preference (male/female, specific provider name): Dr. Elder (wants to see Viki) Willing to see someone other than physician, such as [facility] BURGER, resident? yes Patient reason for appointment/any current symptoms: establish care Other information (including need for skin specialist): n/a Route ALL calls to: [facility] PATIENT DIRECTOR GLOBAL INTELLIGENCE TECHNIST documented in this encounter Plan of Treatment Upcoming Encounters Date Type Department Care Team (Late st Contact Info) Description 12/04/2024 10:00 AM CDT Lab [facility] Oncology Services [address] [place] [address] Lucina Marquez Carolyn, [facility] [address] [place] [address] Discharge Disposition: Discharged to home or Selfcare 12/11/2024 10:00 AM CDT Office Visit [facility] Oncology Services [address] [place] [address] [facility], [facility] [address] [place] [address] Discharge Disposition: Discharged to home or Selfcare 12/25/2024 11:30 AM CDT Office Visit [facility] - Neurology [facility] [address] [place] [address] Dennis Parikh MD [address] [place] [address] documented as of this encounter Visit Diagnoses Not on filedocumented in this encounter Additional Health Concerns Infection Onset Date Last Indicated Resolved Time COVID - 19 04/02/2021 04/02/2021 04/03/2021 11:0 7 AM PYROTECHNIST COVID - 19 Confirmed 04/02/2021 04/02/2021 022 12:16 AM PYROTECHNIST COVID - 19 02/20/2023 02/20/2023 03/02/2023 12:1 8 AM PYROTECHNIST COVID - 19 03/07/2023 03/07/2023 03/17/2023 12:1 6 AM PYROTECHNIST COVID - 19 11/20/2023 11/20/2023 11/20/2023 5:08 PM CDT COVID - 19 11/28/2023 11/28/2023 11/28/2023 1:39 PM CDT COVID - 19 Confirmed 11/28/2023 11/28/2023 024 12:16 AM CDT documented as of this encounter Care Teams Carbon Paper Machine Operator Relationship Specialty Start Date End Date Adriel Barrios MD [address] [place] [address] PCP - General Family Medicine 02/28/17 03/09/21 Viki Obando, CANAL DRIVER, GEOGRAPHIC INFORMATION SYSTEM ANALYST [address] [place] [address] PCP - General Advanced Practice Nurse 03/10/21 Mart Melton MD [address] [place] [address] [place] [address] Consulting Physician General Surgery 07/21/21 documented as of this encounter
--- OUTSIDE RECORDS SUMMARY | 2024-09-16 12:21 | XMS_ITS | Encounter Summary ---
Author Organization [facility] Address [address] [place] [address] Phone Care Team Providers Care Voice Studies Director Name Role Phone Viki Obando APRN, CNP Primary Care P rovider Mart Melton MD Unavailable [phone] Reason for Visit * Reason Onset Date Comments Follow-up 04/18/2024 Encounter Details Date Type Department Care Team (Late st Contact Info) Description 04/18/2024 Telephone [facility] [address] [place] [address] Viki Obando APRN, OUTDOOR STUDIES DIRECTOR [address] [place] [address] Follow-up Social History Tobacco Use Types Packs/Day Years Used Date Smoking Tobacco: Former Cigarettes Q uit: 07/22/2008 Smokeless Tobacco: Never Alcohol Use Standard Drinks/Week Comments Not Currently 0 (1 standard drink = 0.6 oz pur e alcohol) rarely [facility] Utilities Answer Date Recorded In the past 12 months has [employer], gas, oil, or water company threatened to [...] 11/28/2023 How often do you attend chur ch or amish services? Patient declined 11/28/2023 Do you belong to any clubs o r organizations such as mosque groups, unions, fraternal or athletic groups, or [...] Recorded Total Score - Questions 1-9 0 /0 06/2024 [facility] of Occupat ional Health - Occupational Stress [...] any time in the past 12 m [facility], were you homeless or living in a half-way (including now)? No 11/28/2023 Education Answer Date [...] encounter Miscellaneous Notes * Telephone Encounter - Teddy Barrera RN - 04/18/2024 1:31 PM CST Situation: Follow up Background: Patient contacting PCP office. Assessment: Patient states that she had her labs drawn again this morning and she got her results and that theyare still abnormal. She is wanting to know what the plan will be going forward. Recommendation: Please advise and callback with provider recommendations. Encounter routed to provider to notify. ATRIC DENTIST documented in this encounter Plan of Treatment Upcoming Encounters Date Type Department Care Team (Late st Contact Info) Description 12/04/2024 10:00 AM CDT Lab [facility] Oncology Services [address] [place] [address] Lucina Marquez Carolyn, PAC [address] [place] [address] Discharge Disposition: Discharged to home or Selfcare 12/11/2024 10:00 AM CDT [facility] [address] [place] [address] Lucina Marquez, PAC [address] [place] [address] Discharge Disposition: Discharged to home or Selfcare 12/25/2024 11:30 AM CDT Office Visit [facility] Neurology [facility] [address] [place] [address] Dennis Parikh MD [address] [place] [address] documented as of this encounter Visit Diagnoses Not on filedocumented in this encounter Additional Health Concerns Assessment Noted Time PHQ-9 Depression Total Score: 0 04/10/19 25 10:17 AM PEDIATRIC DENTIST documented as of this encounter Care Teams Voice Studies Director Relationship Specialty Start Date End Date Viki Obando APRN, OUTDOOR STUDIES DIRECTOR [address] [place] [address] PCP - General Advanced Practice Nurse 03/10/21 Mart Melton MD [address] [address] Consulting Physician General Surgery 07/21/21 documented as of this encounter
--- OUTSIDE RECORDS SUMMARY | 2024-09-16 12:21 | XMS_ITS | Clinical Summary ---
Author Organization [facility] Address [address] [place] [address] Care Team Providers Care Tapering Machine Operator Name Role Phone Unavailable Primary Care Provider Unavailabl e Source Comments [facility],non-owned Affiliates and Associated Physician Practices is amultiple site organization consisting of ambulatory clinics and hospital sitesin [place], [place], [place] and [place]. This disclosure is being madepursuant to the Care Everywhere program and may not contain all information available regarding this patient. Last updated 17.[email or web address] [email or web address] Social History Tobacco Use Types Packs/Day Years Used Date Smoking Tobacco: Never Assessed Comments Unknown Sex and Gender Information Value Date Recorded Sex Assigned at Not on file Legal Sex Female 5:34 AM WELLNESS AMBASSADOR Gender Identity Not on file Sexual Orientation Not on file Plan of Treatment Health Maintenance Due Date Last Done Comments HIV SCREENING 06/17/2002 HEPATITIS C SCREENING 06/13/2005 DTAP/TDAP/TD VACCINES (1 - Tdap) 06/17/2006 HEPATITIS B VACCINE (1 of 3 - 19+ 3-dose series) 06/17/2006 HPV VACCINE (1 - 3-dose SCDM series) 06/17/2014 COVID-19 VACCINE (1 - 2023-2 5 season) 2023 DEPRESSION SCREENING 03/07/2024 INFLUENZA VACCINE (#1) 2024 ZOSTER VACCINE (1 of 2) 06/17/2037 HIB VACCINE Aged Out No longer eligi ble based on patient's age to complete this topic MENINGOCOCCAL (Group B) VACC INE SHARED DECISION-MAKING Aged Out No longer eligibl e based on patient's age to complete this topic MENINGOCOCCAL GROUPS A/C/Y/W VACCINE Aged Out No longer eligible b ased on patient's age to complete this topic PNEUMOCOCCAL VACCINE Aged Out No long er eligible based on patient's age to complete this topic Insurance [facility]
--- OUTSIDE RECORDS SUMMARY | 2024-09-16 12:21 | XMS_ITS | Encounter Summary ---
Author Organization [facility] Address [address] [place] [address] Phone Care Team Providers Care Clinical Research Technician Name Role Phone Viki Obando APRN, CNP Primary Care P rovider Mart Melton MD Unavailable [phone] Reason for Visit * Reason Comments Medication Refill Encounter Details Date Type Department Care Team (Late st Contact Info) Description 02/17/2022 Refill [facility] - Primary Care - [place] [address] [place] [address] Viki Obando APRN, CNP [address] [place] [address] Medication Refill Social History Tobacco Use Types Packs/Day Years [...] encounter Miscellaneous Notes * Telephone Encounter - Pat Robbins, RN - 02/17/2022 4:11 PM CST Discontinued by PCP on 09/24/21 for Alternate Therapy. 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 documented in this encounter Plan of Treatment Upcoming Encounters Date Type Department Care Team (Late st Contact Info) Description 12/04/2024 10:00 AM CD[facility] [address] [place] [address] Lucina Marquez Carolyn, PAC [address] [place] [address] Discharge Disposition: Discharged to home or Selfcare 12/11/2024 10:00 AM CDT [facility] [address] [place] [address] Lucina Marquez Carolyn, PAC [address] [place] [address] Discharge Disposition: Discharged to home or Selfcare 12/25/2024 11:30 AM CDT Office Visit [facility] - Neurology 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
--- OUTSIDE RECORDS SUMMARY | 2024-09-16 12:21 | XMS_ITS | Encounter Summary ---
Author Organization [facility] Address [address] [place] [address] Phone Care Team Providers Care Reagent Tender Helper Name Role Phone Viki Obando APRN, LUIS Primary Care P rovider Mart Melton MD Unavailable [phone] Encounter Details Date Type Department Care Team (Late st Contact Info) Description 08/07/2021 Transcribe Orders [facility] Preop/Pacu II [address] [place] [address] Mart Melton MD [address] [address] Pre-op testing (Primary Dx) Social History Tobacco [...] Recorded In the last 10 days, have yo u been in contact with someone who was confirmed or suspected to have Coronavirus/COVID-19? No / Unsure 08/10/2021 10:44 AM CDT documented as of this encounter Plan of Treatment Upcoming Encounters Date Type Department Care Team (Late st Contact Info) Description 12/04/2024 10:00 AM CD[facility] [address] [place] [address] Lucina Marquez August, PAC [address] [place] [address] Discharge Disposition: Discharged to home or Selfcare 12/11/2024 10:00 AM CDT [facility] [address] [place] [address] Lucina Marquez August, PAC [address] [place] [address] Discharge Disposition: Discharged to home or Selfcare 12/25/2024 11:30 AM CDT Office Visit [facility] - Neurology [facility] [address] [place] [address] Dennis Parikh MD [address] [place] [address] documented as of this encounter Results * SARS-COV-2 BY MOLECULAR (08/10/2021 10:54 AM CDT) SARSCOV2 NOT DETECTED (Referenc e Range for this test is Not Detected) [facility] PULIDO ID NOW 08/10/2021 12:24 PM CDT [facility] Comment:This test was perfor med by a MOLECULAR, NON-PCR method Other NASAL STRUCTURE / Unknown Non-Phlebotomy Collection / Unknown 08/10/2021 10:54 AM CDT 08/10/2021 11:55 AM CDT Narrative [facility] - 08/10/2021 12:24 PM CDT This test has been authorized by the FDA under an Emergency Use Authorization (EUA) only. Negative results should be treated as presumptive and, if inconsistent with clinical signs and symptoms or necessary for patient management, the patient should be tested with an alternative molecular assay. Negative results do not preclude SARS-CoV-2 infection or any other respiratory pathogen. 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
--- OUTSIDE RECORDS SUMMARY | 2024-09-16 12:21 | XMS_ITS | Data Portability ---
Author Organization [facility] Address [address] [place] [address] Care Team Providers Care Airplane Tester Name Role Phone ADRIEL ALFORD Primary Care Provider Assessment No assessment recorded. Plan of Treatment Reminders Order Date Submit Date Provider Last Modified By Organization Details Last Modified Time Details Appointments None recorded. Lab cytology report, thin prep, smear or scraping, cervical or vaginal 2023 024 [facility], [address] [place] [address] 2, [place], [address], 4 07:24:42 TSH + free T4, serum 2023 024 [facility], [address] [place] [address] 2, [place], [address], 4 16:12:47 lh + FSH, serum 2023 024 [facility], [address] [place] [address] 2, [place], [address], 4 16:12:48 cytology report, thin prep, smear or scraping, cervical or vaginal 2020 021 [facility], [address], [place], [address], 16:11:37 Referral nutrition ist/dieti dia referral 2020 021 kin [facility] Nutrition - Diabetes Management, [address] [facility] , [place], [address], 2 08:40:40 nutrition ist/dieti dia referral 2018 019 [facility] Nutrition/ Box Car Checker, [address] [place], [address], 9 15:10:19 Procedures None recorded. Surgeries None recorded. Imaging US, gallbladd er 2018 019 [facility] [address] [facility] , [place], [address], 0 16:56:35 Medication Orders baclofen 10 mg tablet 2019 020 [email or web address] [id number], [address] [place], [address], 4 14:48:20 hydrochlo rothiazid e 12.5 mg tablet 2018 019 [email or web address] [id number], [address] [place], [address], 0 10:49:06 Patient TargetsNo targets recorded. Patient Instructions Encounter Date Encounter Id Patient Instructions Last Modified By Organization Details Last Modified Time 11/02/2018 [id number] leg and ankle edema: care instructions [email or web address] Not available 11/02/2018 12:45:51 insomnia: care instructions [email or web address] Not available 11/02/2018 12:55:11 10/29/2020 [id number] body mass index: care instructions [email or web address] Not available 10/29/2020 11:45:32 learning about healthy weight Not available 10/29/2020 11:45:32 11/08/2023 [id number] A healthy lifestyle: care instructions Not available 11/08/2023 17:45:05 Reason for Referral Teletype Installer/dietitian Refer ral for Morbid obesity Referring Physician: Adriel Alford, Family Medicine, Encounter Date: 11/02/2018 Teletype Installer/dietitian Refer ral for Body mass index 40+ - severely obese Referring Physician: Orion Mata, NETWORK SUPPORT SPECIALIST, Encounter Date: 10/29/2020 Results Created Date Observation Date Name Description Value Unit Range Abnormal Flag Note LastModifiedBy Organization Detail LastModifiedTime 10/30/19 21 10/31/2020 IGP,C TNGTV ,APT HPV,R FX16/ 18,45 HPV aptima Negati ve negati ve This nucle ic acid ampli ficat ion test detec ts fourt een high- risk HPV types (16,1 8,31, 33,35 ,39,4 5,51, 52,56 ,58,5 9,66, 68) witho ut diffe renti ation . Not Available [facility] ([facility]) [address] [place], [address], 11/03/2020 16:11:37 10/30/19 21 10/31/2020 IGP,C TNGTV ,APT HPV,R FX16/ 18,45 chlamydia, nuc. acid amp Negati ve negati ve Not Available [facility] ([facility]) [address] [place], [address], 11/03/2020 16:11:37 10/30/19 21 10/31/2020 IGP,C TNGTV ,APT HPV,R FX16/ 18,45 gonococcus, nuc. acid amp Negati ve negati ve Not Available [facility] ([facility]) [address] [place], [address], 11/03/2020 16:11:37 10/30/19 21 10/31/2020 IGP,C TNGTV ,APT HPV,R FX16/ 18,45 trich vag by NENITA Negati ve negati ve Not Available [facility] ([facility]) [address] [place], [address], 11/03/2020 16:11:37 10/30/19 21 11/03/2020 IGP,C TNGTV ,APT HPV,R FX16/ 18,45 diagnosis: Марина t abnormal EPITH ELIAL CELL ABNOR MALIT Y. ATYPI BRUNILDA SQUAM OUS CELLS OF UNDET ERMIN ED SIGNI FICAN CE (ASC- US). FUNGA L ORGAN ISMS MORPH OLOGI VIVIENNE CONSI STENT WITH JESSEE DA SPECI ES ARE PRESE NT. Not Available [facility] ([facility]) [address] [facility], [place], [address], 11/03/2020 16:11:37 10/30/19 21 11/03/2020 IGP,C TNGTV ,APT HPV,R FX16/ 18,45 recommendati on: Марина t abnormal Sugge st follo w up as clini vivienne appro priat e. Not Available [facility] ([facility]) [address] [facility], [place], [address], 11/03/2020 16:11:37 10/30/19 21 11/03/2020 IGP,C TNGTV ,APT HPV,R FX16/ 18,45 specimen adequacy: Марина castillo Satis facto ry for evalu ation . Endoc ervic al and/o r squam ous metap lasti c cells (endo cervi brunilda compo nent) are prese nt. Not Available [facility] ([facility]) [address] [facility], [place], [address], 11/03/2020 16:11:37 10/30/19 21 11/03/2020 IGP,C TNGTV ,APT HPV,R FX16/ 18,45 clinician provided ICD10: Марина castillo Z01.4 19 Not Available [facility] ([facility]) [address] [place], [address], 11/03/2020 16:11:37 10/30/19 21 11/03/2020 IGP,C TNGTV ,APT HPV,R FX16/ 18,45 performed by: Марина Willoughby , Cytot jorge castillo (ASCP ) Not Available [facility] ([facility]) [address] [place], [address], 11/03/2020 16:11:37 10/30/19 21 11/03/2020 IGP,C TNGTV ,APT HPV,R FX16/ 18,45 electronical ly signed by: Марина Gordon MD, Patho adriano t Not Available [facility] ([facility]) [address] [place], [address], 11/03/2020 16:11:37 10/30/19 21 11/03/2020 IGP,C TNGTV ,APT HPV,R FX16/ 18,45 . . Not Available [facility] ([facility][1]) [address] [place], [address], 11/03/2020 16:11:37 10/30/19 21 11/03/2020 IGP,C TNGTV ,APT HPV,R FX16/ 18,45 pathologist provided ICD10: Марина castillo R87.6 10, R87.5 Not Available [facility] ([facility][1]) [address] [place], [address], 11/03/2020 16:11:37 10/30/19 21 11/03/2020 IGP,C TNGTV ,APT HPV,R FX16/ 18,45 note: Марина castillo The Pap smear is a scree jesus test desig halima to aid in the detec tion of elin ligna nt and malig nant condi tions of the uteri ne cervi x. It is not a diagn ostic proce dure and shoul d not be used as the sole means of detec ting cervi brunilda cance r. Both false -posi tive and false -nega tive repor ts do occur . Not Available [facility] ([facility]) [address] [place], [address], 11/03/2020 16:11:37 10/30/19 21 11/03/2020 IGP,C TNGTV ,APT HPV,R FX16/ 18,45 test methodology: Commen t This liqui d based ThinP rep(R ) pap test was mignon varghese with the use of an image guide michele shore Not Available [facility] ([facility]) [address] [place], [address], 11/03/2020 16:11:37 11/08/19 24 11/09/2023 TSH+F REE T4 TSH 0.957 uIU/m L 0.450- 4.500 Not Available [facility] ([facility]) [address] [place], [address], 11/09/2023 16:12:47 11/08/19 24 11/09/2023 TSH+F REE T4 T4,free(dire ct) 1.29 NG/dL 0.82-1 .77 Not Available [facility] ([facility]) [address] [place], [address], 11/09/2023 16:12:47 11/08/19 24 11/09/2023 FSH AND LH LH 12.0 mIU/m L Adult Femal e Range Folli cular phase 2.4 - 12.6 Ovula tion phase 14.0 - 95.6 Lutea l phase 1.0 - 11.4 Postm enopa usal 7.7 - 58.5 Not Available [facility] ([facility]) [address] [place], [address], 11/09/2023 16:12:47 11/08/19 24 11/09/2023 FSH AND LH FSH 6.4 mIU/m L Adult Femal e Range Folli cular phase 3.5 - 12.5 Ovula tion phase 4.7 - 21.5 Lutea l phase 1.7 - 7.7 Postm enopa usal 25.8 - 134.8 Not Available [facility] ([facility]) [address] [place], [address], 11/09/2023 16:12:47 11/08/19 24 11/10/2023 IGP,C TNGTV ,APT HPV,R FX16/ 18,45 HPV aptima NEGATI VE negati ve This nucle ic acid ampli ficat ion test detec ts fourt een high- risk HPV types (16,1 8,31, 33,35 ,39,4 5,51, 52,56 ,58,5 9,66, 68) witho ut diffe renti ation . Not Available [facility] ([facility]) [address] [facility], [place], [address], 11/11/2023 07:24:42 11/08/19 24 11/10/2023 IGP,C TNGTV ,APT HPV,R FX16/ 18,45 chlamydia, nuc. acid amp NEGATI VE negati ve Not Available [facility] ([facility]) [address] [place], [address], 11/11/2023 07:24:42 11/08/1911/10/2023 IGP,C TNGTV ,APT HPV,R FX16/ 18,45 gonococcus, nuc. acid amp NEGATI VE negati ve Not Available [facility] ([facility]) [address] [facility], [place], [address], 11/11/2023 07:24:42 11/08/19 24 11/10/2023 IGP,C TNGTV ,APT HPV,R FX16/ 18,45 trich vag by NENITA NEGATI VE negati ve Not Available [facility] ([facility]) [address] [place], [address], 11/11/2023 07:24:42 11/08/1911/11/2023 IGP,C TNGTV ,APT HPV,R FX16/ 18,45 diagnosis: COMMEN T NEGAT JERRELL FOR INTRA EPITH ELIAL LESIO N OR MALIG EDMUND . Not Available [facility] ([facility]) [address] [place], [address], 11/11/2023 07:24:42 11/08/19 24 11/11/2023 IGP,C TNGTV ,APT HPV,R FX16/ 18,45 specimen adequacy: МАРИНА Castillo Satis facto ry for evalu ation . Endoc ervic al and/o r squam ous metap lasti c cells (endo cervi brunilda compo nent) are prese nt. Not Available [facility] ([facility]) [address] [place], [address], 11/11/2023 07:24:42 11/08/19 24 11/11/2023 IGP,C TNGTV ,APT HPV,R FX16/ 18,45 clinician provided ICD10: МАРИНА Castillo Z01.4 19 Not Available [facility] ([facility]) [address] [place], [address], 11/11/2023 07:24:42 11/08/19 24 11/11/2023 IGP,C TNGTV ,APT HPV,R FX16/ 18,45 performed by: Jose Keys (ASCP ) Not Available [facility] ([facility]) [address] [place], [address], 11/11/2023 07:24:42 11/08/19 24 11/11/2023 IGP,C TNGTV ,APT HPV,R FX16/ 18,45 . . Not Available [facility] ([facility]) [address] [place], [address], 11/11/2023 07:24:42 11/08/19 24 11/11/2023 IGP,C TNGTV ,APT HPV,R FX16/ 18,45 note: МАРИНА Castillo The Pap smear is a scree jesus test desig halima to aid in the detec tion of elin ligna nt and malig nant condi tions of the uteri ne cervi x. It is not a diagn ostic proce dure and shoul d not be used as the sole means of detec ting cervi brunilda cance r. Both false -posi tive and false -nega tive repor ts do occur . Not Available [facility] ([facility]) [address] [facility], [place], [address], 11/11/2023 07:24:42 11/08/19 24 11/11/2023 IGP,C TNGTV ,APT HPV,R FX16/ 18,45 test methodology: COMMEN T This liqui d based ThinP rep(R ) pap test was scree halima with the use of an image guide michele aaron. Not Available [facility] ([facility]) [address] [facility], [place], [address], 11/11/2023 07:24:42 11/08/19 24 11/11/2023 IGP,C TNGTV ,APT HPV,R FX16/ 18,45 HPV genotype reflex COMMEN T Crite gwen not met, HPV Genot ype not perfo rmed. Not Available [facility] ([facility]) [address] [facility], [place], [address], 11/11/2023 07:24:42 06/20/19 20 06/20/2019 , aaron seaman No observ ation record ed. [email or web address] [address], [place], [address], 06/21/2019 16:59:31 Result Notes None recorded. Problems Name Problem SNOMED Code Status Onset Date Resolution Date Notes Provider Name and Address Organization Details Recorded Time Hyperlipide nila 98116125 Active Rose Kurtz MD Attn: Artem g,[address] [facility], [place], [address], [place] - [facility] 5 16:03:39 Gout 80966191 Active Meche Bartlett LPN null, [place] [facility] 5 15:11:44 Leukocytosi s 310912434 Active Meche Bartlett LPN null, [place] [facility] 5 15:11:44 Obesity 485889617 Active Rose Kurtz MD Attn: Artem cook,[address] [facility], [place], [address], [facility] 5 16:03:39 Upper respiratory infection 47263580 Completed 03/30/2016 Rose Kurtz MD Attn: Artem cook,[address] [facility], [place], [address], [facility] 7 15:01:07 Problem Notes None recorded. Procedures Surgical History Date Name Laterality Status Provider Name and Address Organization Details Recorded Time 11/08/19 24 Date of Last Pap Smear completed Ashly Quiñonez RN [facility] 11/11/2023 10:00:12 03/07/19 12 Dilation and Curettage completed [facility] 03/30/2016 14:55:26 03/07/19 08 Caesarean Section completed [facility] 03/30 14:55:15 03/07/18 95 Tonsillectomy completed [facility] 7 14:56:22 Other completed [facility] 017 14:55:56 excision of cyst of epididymis completed Elsa López MA [facility] 11/08/2023 14:54:40 Imaging Results None recorded. Procedure Notes None recorded. Medical Equipment None Reported. Allergies Allergen ID Allergen Name Allergen Category Reaction Reaction Severity Criticality Documentation Date Start Date Code Code System Note Provider Name and Address Organization Details Recorded Time 863508 Product containin g penicilli n (product) medicatio n rash mild Not available 10/18/2019 15664 8001 SNOMED Denisse Hicks MA null, [facility] 0 10:47:35 96065 latex environme nt,medica tion hives severe Not available 06/28/2014 98745 91 RxNorm Meche Bartlett LPN null, [facility] 5 15:22:20 86560 Substance with sulfonami de structure and antibacte rial mechanism of action (substanc e) medicatio n Not available Not available Not available 06/28/2014 33506 8003 SNOMED As a baby Elsa López MA null, [place] - [facility] 1 11:11:36 02831 Amoxil medicatio n photosens itivity mild Not available 06/28/2014 94054 9 RxNorm Meche Bartlett LPN null, [place] - [facility] 5 15:22:20 44671 cyclobenz aprine medicatio n arthralgi a (joint pain) moderate Not available 06/28/2014 11248 RxNorm Meche Bartlett LPN null, [place] - [facility] 5 15:22:20 66456 naproxen medicatio n Not available Not available Not available 06/28/2014 7258 RxNorm Rose Kurtz MD Attn: Artem cook,[address] [facility], [place], [address], [facility] 7 15:09:28 Medications Name Sig Start Date Stop Date Status Note LastModified by Organization Details LastModified Time tamiflu cap 75mgtamiflu active Not Available Not Available Not Available naproxen sod tab 550mgnaprox en sodium active Not Available Not Available No t Available prednisone 10 mg tablet 11/02 completed Not Available Not Available Not Available doxycycline hyclate 100 mg capsule Take 1 capsule twice a day by oral route for 10 days. 10/17 completed Not Available Not Available Not Available nabumetone 750 mg tablet 02/21 completed Not Available Not Available Not Available azithromyci n 250 mg tablet TAKE 2 TABLETS BY MOUTH TODAY, THEN TAKE 1 TABLET DAILY FOR 4 DAYS DIRECTED 11/07 completed Not Available Not Available Not Available ofloxacin 0.3 % eye drops 02/21 completed Not Available Not Available Not Available fluconazole 150 mg tablet active Not Available Not Available Not Available acetaminoph en 120 mg-codeine 12 mg/5 mL oral solution 02/21 completed Not Available Not Available Not Available clarithromy gabriella 500 mg tablet TAKE 1 TABLET BY MOUTH TWICE DAILY FOR 14 DAYS 11/07 completed Not Available Not Available Not Available hydrocodone 5 mg-acetamin ophen 325 mg tablet active Not Available Not Available No t Available meloxicam 15 mg tablet Take 1 tablet every day by oral route as needed with meal for pain. 05/13 completed Not Available Not Available Not Available prednisone 20 mg tablet TAKE 2 TABLETS BY MOUTH DAILY FOR 5 DAYS THEN TAKE 1 TABLET DAILY FOR 5 DAYS 11/07 completed Not Available Not Available Not Available ciprofloxac in 500 mg tablet Take 1 tablet every 12 hours by oral route for 10 days. 02/21 completed Not Available Not Available Not Available Gentak 0.3 % (3 mg/gram) eye ointment active Not Available Not Available Not Available meloxicam 7.5 mg tablet 10/17 completed Not Available Not Available Not Available prednisolon e acetate 1 % eye drops,suspe nsion active Not Available Not Available Not Available meclizine 25 mg tablet TAKE 1 TABLET BY MOUTH 3 TIMES A DAY NEEDED DIZZINESS active Not Available Not Available No t Available baclofen 10 mg tablet Take 1 tablet twice a day by oral route as needed for 15 days. 11/07 completed Not Available Not Available Not Available amlodipine 10 mg tablet TAKE 1 TABLET BY MOUTH EVERY DAY active Not Available Not Available No t Available doxycycline monohydrate 100 mg capsule 10/17 completed Not Available Not Available Not Available indomethaci n 25 mg capsule active Not Available Not Available Not Available hydrochloro thiazide 12.5 mg capsule TAKE 1 CAPSULE BY MOUTH DAILY NEEDED FOR EDEMA 10/17 completed Not Available Not Available Not Available gabapentin 300 mg capsule Take 1 capsule every day by oral route at bedtime. 05/13 completed Not Available Not Available Not Available montelukast 10 mg tablet TAKE 1 TABLET BY MOUTH EVERY DAY IN THE EVENING active Not Available Not Available No t Available gabapentin 100 mg capsule TAKE 1 CAPSULE BY MOUTH EVERY DAY AT NIGHT active Not Available Not Available No t Available ergocalcife rol (vitamin D2) 1,250 mcg (50,000 unit) capsule TAKE 1 CAPSULE BY MOUTH ONE TIME PER WEEK active Not Available Not Available No t Available ibuprofen 600 mg tablet TAKE 1 TABLET BY MOUTH TWICE A DAY WITH MEAL 07/03 completed Not Available Not Available Not Available cefuroxime axetil 500 mg tablet TAKE 1 TABLET BY MOUTH TWICE DAILY FOR 14 DAYS active Not Available Not Available No t Available levofloxaci n 500 mg tablet active Not Available Not Available Not Available methylpredn isolone 4 mg tablets in a dose pack FOLLOW PACKAGE DIRECTION S active Not Available Not Available No t Available albuterol sulfate HFA 90 mcg/actuati on aerosol inhaler TAKE 2 PUFFS BY INHALATIO N EVERY 4 HOURS NEEDED FOR WHEEZING OR COUGH. active Not Available Not Available No t Available colchicine 0.6 mg tablet 03/30 completed Not Available Not Available Not Available atropine 1 % eye drops active Not Available Not Available Not Available ondansetron 4 mg disintegrat ing tablet 02/21 completed Not Available Not Available Not Available cefdinir 300 mg capsule TAKE 1 CAPSULE BY MOUTH EVERY 12 HOURS active Not Available Not Available No t Available fluticasone propionate 50 mcg/actuati on nasal spray,suspe nsion [place] 2 sprays every day by intranasa l route. 02/21 completed Not Available Not Available Not Available naproxen 500 mg tablet TAKE 1 TABLET BY MOUTH TWICE A DAY WITH FOOD active Not Available Not Available No t Available neomycin-po lymyxin-hyd rocort 3.5 mg-10,000 unit/mL-1 % ear drops,susp 03/30 completed Not Available Not Available Not Available azithromyci n 500 mg tablet 05/13 completed Not Available Not Available Not Available nitrofurant oin monohydrate /macrocryst als 100 mg capsule 11/07 completed Not Available Not Available Not Available hydrochloro thiazide 12.5 mg tablet take 1 tablet po daily prn edema 10/17 completed Not Available Not Available Not Available Uloric 40 mg tablet TAKE 1 TABLET BY MOUTH EVERY DAY 11/02 completed Not Available Not Available Not Available Allergy Eye (ketotifen) 0.025 % (0.035 %) drops 03/30 completed Not Available Not Available Not Available Vitals Date Recorded Body height Provider Name an d Address Organization Details Last Updated DateTime 10/18/2019 144.78 cm Denisse Hicks MA [facility] 2019 10:47:00 Date Recorded Body height Body mass index (BMI) Body weight Systolic And Diastolic Provider Name and Address Organization Details Last Updated DateTime 10/29/2020 145.42 cm 41.5 kg/m2 81243.76 g 132/86 mm[Hg] Elsa López MA [facility] 10/29/2020 11:09:38 Date Recorded Body weight Body height Body mass index (BMI) Heart rate Respiratory rate Body temperature Systolic And Diastolic Provider Name and Address Organization Details Last Updated DateTime 9 11323.5 9 g 144.78 cm 40 kg/m2 92 /min 16 /min 98.1 [degF] 108/88 mm[Hg] Denisse Hicks MA [facility] 9 11:45:50 Date Recorded Body height Body mass index (BMI) Body weight Systolic And Diastolic Provider Name and Address Organization Details Last Updated DateTime 11/08/2023 145.42 cm 41.4 kg/m2 76923.76 g 124/79 mm[Hg] Elsa López MA [facility] 11/08/2023 14:47:44 Date Recorded Body height Body mass index (BMI) Body weight Systolic And Diastolic Provider Name and Address Organization Details Last Updated DateTime 11/12/2020 145.42 cm 42.3 kg/m2 08139.7 g 108/80 mm[Hg] Elizabeth Mcclellan MA [facility] 11/12/2020 10:14:47 Social History Question Answer Notes LastModified by Organizat ion Details LastModified Time Tobacco Smoking Status Former Smoker Quit -2009 Not Available [facility] 01/08/2020 03:39:32 Do You Have An Advance Directive? No Information not available 11/08/2023 Is Blood Transfusion Acceptable In An Emergency? Yes Information not available 11/08/2023 What Is Your Level Of Caffeine Consumption? Heavy Soda [id number] Information not available 01/08/2020 How Much Tobacco Do You Chew? None [id number] Information not available 01/08/2020 In The 14 Days Before Symptom Onset, Have You Had Close Contact With A Laboratory-confir med COVID-19 While That Case Was Ill? No Information not available 11/08/2023 In The 14 Days Before Symptom Onset, Have You Had Close Contact With A Person Who Is Under Investigation For COVID-19 While That Person Was Ill? No Information not available 11/08/2023 Have You Been To An Area Known To Be High Risk For COVID-19? No Information not available 11/08/2023 What Type Of Diet Are You Following? SPECIFIC [id number] Information not available 01/08/2020 Which Illicit Or Recreational Drugs Have You Used? Denies [id number] Information not available 01/08/2020 What Is The Highest Grade Or Level Of School You Have Completed Or The Highest Degree You Have Received? [id number] Information not available 11/08/2023 Have There Been Any Changes To Your Family Or Social Situation? No Information no t available 11/08/2023 Marital Status Informatio n not available 03/30/2016 What Was The Date Of Your Most Recent Tobacco Screening? 11/08/2023 Information not available 11/08/2023 How Many Children Do You Have? 2 Information not available 11/08/2023 Do You Have Any Pets? Yes X 2 Dogs Information not available 11/08/2023 What Is Your Relationship Status? Information not available 11/08/2023 Do You Use Your Seat Belt Or Car Seat Routinely? Yes Information not available 11/08/2023 Are You Sexually Active? Yes Information not available 11/08/2023 Do You Have Smoke And Carbon Monoxide Detectors In Your Home? Yes Information not available 11/08/2023 At What Age Did You Start Smoking Tobacco? 11 [id number] Information not available 01/08/2020 Are You Passively Exposed To Smoke? Yes Information no t available 11/08/2023 How Much Tobacco Do You Smoke? No [id number] Information not available 01/08/2020 General Stress Level Medium Information not available 03/30/2016 Do You Use Sunscreen Routinely? No Information not available 11/08/2023 On What Date Was Tobacco Cessation Counseling Provided? 11/08/2023 Information not available 11/08/2023 How Many Years Have You Smoked Tobacco? 9 [id number] Information not available 01/08/2020 Sex: Female Functional Status Question Answer Note LastModified by Organizat ion Details LastModified Time What is your level of alcohol consumption? Occasional [id number] Information not available 01/08/2020 Do you or have you ever used smokeless tobacco? Never used smokeless tobacco [id number] Information not available 01/08/2020 Are you currently employed? No Information not available 11/08/2023 Do you or have you ever used e-cigarettes or vape? Never used electronic cigarettes [id number] Information not available 01/08/2020 What is your exercise level? Occasional [id number] Information not available 01/08/2020 Mental Status Question Answer Note LastModified by Organization D etails LastModified Time Do you feel stressed (tense, restless, nervous, or anxious, or unable to sleep at night)? [id number] Information not available 11/08/2023 Family History Relationship Description Onset Age of this Age Resolved Age Notes LastModified by Organization Details LastModified Time Mother Asthma [email or web address] Not available 0 06/28/2014 15:23:42 Mother Undifferenti ated attention deficit disorder [email or web address] Not available 2014 15:23:42 Mother Depressive disorder [email or web address] Not available 2014 15:23:42 Mother Diabetes mellitus [email or web address] Not available 2014 15:23:42 Mother Heart disease [email or web address] Not available 2014 15:23:42 Mother Hypercholest erolemia [email or web address] Not available 2014 15:23:42 Mother Hypertensive disorder [email or web address] Not available 2014 15:23:42 Mother Migraine Not available 06/28/2014 15:23:42 Mother Malignant neoplasm of ovary [email or web address] Not available 2014 15:23:42 Mother Kidney disease [email or web address] Not available 2014 15:23:42 Mother Disease of liver [email or web address] Not available 2023 14:51:20 Father Asthma [email or web address] Not available 0 06/28/2014 15:23:42 Father Attention deficit hyperactivit y disorder [email or web address] Not available 06/28 15:23:42 Father Blood coagulation disorder [email or web address] Not available 2014 15:23:42 Father Diabetes mellitus [email or web address] Not available 2014 15:23:42 Father Depressive disorder [email or web address] Not available 2014 15:23:42 Father Heart disease [email or web address] Not available 2014 15:23:42 Father Hypercholest erolemia [email or web address] Not available 2014 15:23:42 Father Hypertensive disorder [email or web address] Not available 2014 15:23:42 Father Migraine Not available 06/28/2014 15:23:42 Medical History Condition Response Ovarian Cancer N Anxiety Disorder Y Muscle, Joint, or Bone Problems Y Other Y Blood Transfusions N High Blood Pressure N Infertility N Breast Cancer N Acid Reflux (GERD) Y Kidney or Bladder Problems N Asthma Y Allergies Y Lung Disease N Blood Clots N Depression Y Acne N Breast Problem N Anemia N High Cholesterol Y Hepatitis N Anesthesia Complications N Liver Disease Y Headaches Y Osteoporosis N Gynecological History Statement/Question Response Flow Light On BCP's at Conception? N STIs/STDs N Duration of Flow (days) 3 Age at Menarche 15 Current Control Method None Age at First Child 21 Sexually Active? Y Menses Monthly No Date of Last Pap Smear 11/08/2023 Sexual Problems? N LMP Approximate Obstetrics History GPAL:G 6 P 2 0 4 2 Type Value Full Term 2 Spontaneous 4 Living 2 Total 6 Immunizations Vaccine Type Date Status Note Provider Nam e and Address Organization Details Recorded Time Hep A, adult 6 completed Not [facility]24/2019 02:43:04 Hep A, unspecified formulation 6 completed Teresita Diamond RN [facility] 06/06/2015 10:42:19 tetanus toxoid, unspecified formulation 4 completed Jennifer Mcdonald [facility], [facility] 03/30/2016 14:51:42 Past Encounters Encounter ID Performer Location Encounter Start Date Encounter Closed Date Diagnosis/Indication Diagnosis SNOMED-CT Code Diagnosis ICD10 Code Diagnosis Note [id number] MD Rekha Betts (Adult Med) [address] [place] [address] 06/28/2014 15:07:35 06/28/2014 16:06:05 Hyperlipidemia 23068155 not on med diet and exercise Obesity 219784436 Upper resp iratory infection 10588700 Increase fluid Claritin for allergies [id number] MD Rekha Betts (Adult Med) [address] [place] [address] 05/07/2015 08:20:11 05/07/2015 09:57:40 Upper respiratory infection 34796969 J06.9 Increase fluid Claritin for allergies [id number] Rose Kurtz MD [facility] (Adult Med) [address] [place] [address] 06/06/2015 11:39:08 06/06/2015 14:58:39 Active or passive immunization 335920445 Z23 [id number] Rose Kurtz MD [facility] (Adult Med) [address] [place] [address] 03/30/2016 14:41:25 03/31/2016 09:34:36 Pain of wrist region 95309396 M25.531 pt to continue wrist splintstar t pt on Gabapentin and mobicRefer to ortho as well [id number] Adriel Alford MD [facility] [address] [place] [address] 05/13/2016 13:46:37 05/17/2016 09:31:51 Dyslipidemia 530431110 E78.5 Gout 15817211 M10.9 Obesity 419232208 E66.9 Pt describes a diet which is far from healthy. Pain of jacquelyn int of wrist 973490600 M25.072 [id number] Adriel Alford MD [facility] [address] [place] [address] 06/14/2016 10:12:50 06/15/2016 09:58:13 Gout 53953143 M10.9 Pt had no improvemen t on allopurino l. Dyslipidemia 326465828 E 78.5 Pt was strongly encouraged to lose weight. Factor V L eiden mutation 723830992 D68.51 [id number] Orion Mata MD [facility] ([place] [address]) [address] [place] [address] 06/30/2016 10:36:52 06/30/2016 14:32:57 Gynecologic examination 39316375 Z01.831 [id number] Adriel Alford MD [facility] [address] [place] [address] 08/16/2016 09:55:32 08/16/2016 16:24:23 Acute sinusitis 01827331 J01.90 Dysuria 36943349 R30.0 [id number] MD Clarissa Obregon [address] [place] [address] 02/21/2018 10:32:59 03/01/2018 08:29:41 Gout 13197981 M10.9 Pt had no improvemen t on allopurino l. Obesity 553024680 E66.9 Pt describes a diet which is far from healthy. [id number] MD Clarissa Obregon [address] [facility] [address] [place] [address] 07/03/2018 13:56:30 07/04/2018 14:54:47 Scapulalgia 75177163 M89.8X1 [id number] MD Clarissa Obregon [address] [facility] [address] [place] [address] 11/02/2018 11:20:47 11/03/2018 10:52:12 Morbid obesity 191044913 E66.01 Disorder o f gallbladder 80801431 K82.9 Edema of l ower extremity 218830656 R60.0 Irregular periods 396918 07 N92.6 Insomnia 265467389 G47.0 0 Avoid caffeinate d beverages after 2 pm [id number] MD Clarissa Obregon [address] [facility] [address] [place] [address] 10/18/2019 10:45:26 10/23/2019 07:23:57 Muscle strain 78619032 T14.8XXD Pt is allergic to cyclobenza abigail but has done well with baclofen in the past. History of urinary tract infection 9926489996 107 Z87.095 [id number] MD Clarissa Lees [address] [facility] [address] [place] [address] 10/29/2020 10:37:44 10/30/2020 10:14:26 Gynecologic examination 75893779 Z01.419 CBE and pap smear performed Body mass index 40+ - severely obese 222312232 Z68.41 [id number] MD Clarissa Lees 14 [address] [facility] [place] [address] 11/12/2020 10:05:36 11/13/2020 06:57:05 Atypical squamous cells of undetermined significance on cervical Papanicolaou smear 041556044 R87.610 HPV negativeWi ll need follow up co-testing in 3 years [id number] MD Dori Leesn 14 [address] [facility] [address] [place] [address] 11/08/2023 14:31:04 11/21/2023 14:38:23 Gynecologic examination 34656410 Z01.419 CBE and pap smear performed Irregular periods 515726 07 N92.6 Morbid obesity 212132472 E66.01 Depression screening 171 399750 Z13.31 --PHQ9=9 Health Concerns Section Related Observation LastModified by Organization Detai ls LastModified Time None Recorded Concern Status LastModified by Organization Details LastModified Time None Recorded Advance Directives Directive N: Payers Insurance Date Sequence Insurance Name Policy Number Policy Walker Covered Member ID Walker Member ID Guarantor Name 10/03/2023 1 [facility] PRIOR TO 09/04/2020 (MEDICAID REPLACEMENT - HMO) Tiffany Lux [id number] Tiffany Lux 11/21/2023 1 [facility] - DOS ON OR AFTER 20 (MEDICAID REPLACEMENT - HMO) Tiffany Lux [id number] Tiffany Lux 10/03/2023 1 [facility] (MEDICAID HMO) Tiffany Lux [id number] Tiffany Lux Notes Date Note Type Note Provider Name and Address Organization Details Recorded Time 11/02/2018 text/html Concerns about inability to lose wt, gallbladder problems, and insomnia. Adriel Alford MD Attn: [address] [place], [address], [facility] 11/02/2018 23:34:56 10/18/2019 text/html Phone visit raghav arauz at 10:17 a.m. As per intake note. It appears that her UTI has resolved. She now reports back pain, worsened by certain movements. Adriel Alford MD Attn: [address] [place], [address], [facility] 10/22/2019 14:01:48 10/29/2020 text/html Annual GYNReport ed bypatient.History: no gynecologic complaints Menstrual cycle:Normal menses Urinary symptoms:No hematuria; No incontinence Vulva:No genital lesion Vagina:Normal vaginal discharge Breast:No breast pain; No breast lump; No nipple discharge Current Contraception:Samm h control not practiced Sexual complaints:No sexual complaints; No pain during intercourse; Normal libido Menopausal Symptoms:No menopausal symptoms; Normal vaginal lubrication Psychological symptoms:No depression; No anxiety; No PMDD Orion Mata MD Attn: [address] [place], [address], [facility] 10/29/2020 11:45:53 11/12/2020 text/html Patient presents to discuss abnormal pap smear results. She denies any other complaints. Orion Mata MD Attn: [address] [place], [address], [facility] 11/12/2020 12:47:52 11/08/2023 text/html Annual GYNReport ed bypatient.Menstrua l cycle:Normal menses; Patient states that her periods sometimes occur every 3 weeks and she is used to them occuring monthly. Urinary symptoms:No hematuria; No incontinence Vulva:No genital lesion Vagina:Normal vaginal discharge Breast:No breast pain; No breast lump; No nipple discharge Sexual complaints:No sexual complaints; No pain during intercourse; Normal libido Menopausal Symptoms:No menopausal symptoms; Normal vaginal lubrication Psychological symptoms:No depression; No anxiety; No PMDD Orion Mata MD Attn: [address] [place], [address], [facility] 11/08/2023 17:45:56 OBGyn Episode No OBEpisode recorded.
--- OUTSIDE RECORDS SUMMARY | 2024-09-16 12:21 | XMS_ITS | Encounter Summary ---
Author Organization [facility] Address [address] [place] [address] Phone Care Team Providers Care Abattoir Manager Name Role Phone Viki Obando APRN, CNP Primary Care P rovider Mart Melton MD Unavailable [phone] Reason for Visit * Reason Comments Medication Refill Encounter Details Date Type Department Care Team (Late st Contact Info) Description 04/16/2022 Refill [facility] - Primary Care - [place] [address] [place] [address] Viki Obando APRN, CNP [address] [place] [address] Medication Refill Social History Tobacco [...] Telephone Encounter - Pat Robbins, RN - 04/16/2022 9:50 AM CST D/C'd by PCP on 09/24/21 for Alternate therapy. ALARM DISPATCHER documented in this encounter Plan of Treatment Upcoming Encounters Date Type Department Care Team (Late st Contact Info) Description 12/04/2024 10:00 AM CDT [facility] [address] [place] [address] Lucina Marquez Carolyn, PAC [address] [place] [address] Discharge Disposition: Discharged to home or Selfcare 12/11/2024 10:00 AM CDT [facility] [address] [place] [address] Lucina Marquez Carolyn, PAC [address] [place] [address] Discharge Disposition: Discharged to home or Selfcare 12/25/2024 11:30 AM CDT [facility] [address] [place] [address] Dennis Parikh MD [address] [place] [address] documented as of this encounter Visit Diagnoses Diagnosis Chronic gout without tophus, unspecified cause, unspecified site documented in this encounter Additional Health Concerns Infection Onset Date Last Indicated Resolved Time COVID - 19 02/20/2023 02/20/2023 03/02/2023 12:1 8 AM 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
--- OUTSIDE RECORDS SUMMARY | 2024-09-16 12:21 | XMS_ITS | Encounter Summary ---
Author Organization [facility] Address [address] [place] [address] Phone Care Team Providers Care Manganese Heater Name Role Phone Viki Obando APRN, CNP Primary Care P rovider Mart Melton MD Unavailable [phone] Reason for Visit * Reason Comments Medication Refill Encounter Details Date Type Department Care Team (Late st Contact Info) Description 03/01/2023 Refill [facility] - Primary Care - [place] [address] [place] [address] Viki Obando APRN, CNP [address] [place] [address] Medication Refill Social History Tobacco Use Types Packs/Day Years Used Date Smoking Tobacco: Former Cigarettes Q uit: 07/22/2008 Smokeless Tobacco: Never Alcohol Use Standard Drinks/Week Comments Not Currently 0 (1 standard drink = 0.6 oz pur e alcohol) rarely PHQ-2 Answer Date Recorded Total Score - Questions 1-9 0 05/2022 Education Answer Date Recorded What is the [...] encounter Miscellaneous Notes * Telephone Encounter - Dakotah Espitia RN - 03/02/2023 8:15 AM CST The original prescription was discontinued on 01/07/2023 by Viki Obando APRN, CNP for the following reason: Med List Clean Up. HEEL ATTACHER documented in this encounter Plan of Treatment Upcoming Encounters Date Type Department Care Team (Late st Contact Info) Description 12/04/2024 10:00 AM CDT [facility] [address] [place] [address] Lucina Marquez August, PAC [address] [place] [address] Discharge Disposition: Discharged to home or Selfcare 12/11/2024 10:00 AM CDT Office Visit [facility] [address] [place] [address] HernshawLucina Carolyn, PAC [address] [place] [address] Discharge Disposition: Discharged to home or Selfcare 12/25/2024 11:30 AM CDT Office Visit [facility] - Neurology [facility] [address] [place] [address] Dennis Parikh MD [address] [place] [address] documented as of this encounter Visit Diagnoses Not on filedocumented in this encounter Additional Health Concerns Infection Onset Date Last Indicated Resolved Time COVID - 19 02/20/2023 02/20/2023 03/02/2023 12:1 8 AM WOOD HEEL 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 COVID - 19 03/07/2023 03/07/2023 03/17/2023 12:1 6 AM WOOD HEEL ATTACHER COVID - 19 11/20/2023 11/20/2023 11/20/2023 5:08 PM CDT COVID - 19 11/28/2023 11/28/2023 11/28/2023 1:39 PM CDT COVID - 19 Confirmed 11/28/2023 11/28/2023 024 12:16 AM CDT Assessment Noted Time PHQ-9 Depression Total Score: 0 01/08/20 9:29 AM CDT documented as of this encounter Care Teams Manganese Heater Relationship Specialty Start Date End Date Viki Obando, FISCAL AGENT, GAS GENERATOR OPERATOR [address] [place] [address] PCP - General Advanced Practice Nurse 03/10/21 Mart Melton MD [address] [address] Consulting Physician General Surgery 07/21/21 documented as of this encounter
[2024-09-16 12:26] VITALS: BP 150/104; PULSE 97; RESP 20; TEMP 36.6; O2SAT 98
--- NOTE | 2024-09-16 12:36 | ED.GENADULT ---
HPI - General Adult General Chief complaint: Upper Respiratory Infection Stated complaint: upper respiratory/chest/ears Time Seen by Provider: 09/16/24 12:36 Source: patient Mode of arrival: ambulatory Limitations: no limitations History of Present Illness HPI narrative: 39-year-old female patient presents to the [facility] with complaints of upper respiratory infection symptoms. Patient states she has had symptoms for about a week now. Patient denies any fevers that she is aware of but states has had some fatigue and chills at times. Patient states she has had a lot of congestion, coughing, drainage slight ear pain. Patient does feel little short of breath but denies any chest pain at this time. Denies any abdominal pain but states that when she does get drainage to the back throat does cause some nausea at times. Patient states she has been taking some [id number] Mucinex for her symptoms. Patient states she does take vitamins daily but denies any other prescription medications patient states she is a former smoker and quit about 18 years ago. Related Data Allergies Allergy/AdvReac Type Severity Reaction Status Date / Time cyclobenzaprine Allergy Severe Rash Verified 05/07/24 13:17 Sulfa (Sulfonamide Allergy Severe Dyspnea / Verified 05/07/24 13:17 Antibiotics) SOB amoxicillin Allergy Intermediate Rash Verified 05/07/24 13:17 tramadol Allergy Intermediate Rash Verified 05/07/24 13:17 latex Allergy Unknown Unknown Verified 05/07/24 13:17 Penicillins AdvReac Intermediate Rash Verified 05/07/24 13:17 Review of Systems Review of Systems: CONSTITUTIONAL: Denies fever, Positive fatigue and chills, denies sweats. EYES: Denies visual changes, redness, or discharge. ENT: positive rhinorrhea, congestion, denies sore throat, positive bilateral otalgia. CARDIOVASCULAR: Denies chest pain, palpitations, or edema. RESPIRATORY: positive cough positive intermittent dyspnea. GASTROINTESTINAL: Denies abdominal pain, positive nausea, denies vomiting, or diarrhea. GENITOURINARY: Denies dysuria or hematuria. SKIN: Denies rash or itching. MUSCULOSKELETAL: Denies back pain, joint pain, or myalgia. NEUROLOGIC: Denies headache, numbness, or weakness. PSYCHIATRIC: Denies anxiety or depression. [facility] Past Medical History Medical History Obese delivery delivered Post traumatic stress disorder (PTSD) Factor V Leiden Asthma Manic bipolar I disorder History of manic depressive disorder Anxiety Surgical History Surgical History History of dilation and curettage H/O section Hx of sinus surgery History of adenoidectomy History of tonsillectomy Family History Family History Father Diabetes mellitus Cerebrovascular accident Factor V Leiden Obese Mother Depression Obese Bipolar disorder Cervical cancer Social History Social History Smoking status: Former smoker Tobacco type: cigarettes Smoking end date: 03/07/07 Additional smoking assessment comments: Smoked for 9 years Living arrangements: with family Gender identity (if verbalized by the patient): Female Sexual Orientation (if Verbalized by the Patient): Straight or Heterosexual Comments At the time of my signature I agree with nursing past medical history, surgical, social, and family history. There is no relevant family history pertinent to the presenting complaint. Exam Narrative: GENERAL: Well-appearing, well-nourished, and in no acute distress. HEAD: Normocephalic, atraumatic. EYES: PERRLA and EOMI. ENT: Nares are completely swollen shut bilaterally to, clear rhinorrhea or epistaxis. Mucous membranes moist. posterior pharynx with postnasal drip and slight erythema no tonsillar enlargement, no exudates or lesions present. Bilateral TMs are clear with no erythema or foreign bodies canal. NECK: Supple. No lymphadenopathy CHEST: Slight decreased lung sounds noted to bilateral lower lobes on auscultation no wheezing present.. No respiratory distress. HEART: Regular rate and rhythm. No murmur heard. Normal peripheral pulses. ABDOMEN: Soft, nontender, nondistended, normal active bowel sounds. EXTREMITIES: Normal range of motion. No edema. SKIN: Warm, dry, no rash. NEURO: No focal deficits. Alert and oriented x3. Course Course Level of Care: Express Care Visit Reevaluation(s) Reevaluation #1: re-evaluated patient notified her that her x-ray was negative for any pneumonia and her COVID test is negative. Discussed with her that this is most likely a virus and we will go ahead and prescribe her some medications to help with her symptoms including Tessalon Perles for the cough, Medrol Dosepak for the pressure in the sinus cavities and a daily antihistamine and Flonase. Patient verbalized understanding denies any other questions or concerns at this time. Date: 09/16/24 Time: 14:04 Vital Signs Vital signs: Vital Signs Temperature 36.6 C 09/16/24 12:26 Pulse Rate 97 09/16/24 12:26 Respiratory Rate 20 09/16/24 12:26 Blood Pressure 150/104 H 09/16/24 12:26 Pulse Oximetry 98 09/16/24 12:26 Oxygen Delivery Room Air 09/16/24 12:26 Temperature 36.6 C 09/16/24 12:26 Pulse Rate 97 09/16/24 12:26 Respiratory Rate 09/16/24 12:26 Blood Pressure 150/104 H 09/16/24 12:26 Pulse Oximetry 98 09/16/24 12:26 Oxygen Delivery Room Air 09/16/24 12:26 vital signs reviewed. The patient has been informed that they may have pre-hypertension or Hypertension based on a BP reading in the department. I recommend that the patient call the primary care provider listed on their discharge instructions or a physician of their choice this week to arrange follow up for further evaluation of possible pre-hypertension or Hypertension Medical Decision Making MDM Narrative Medical decision making narrative: Plan care for patient is to test her today for COVID and obtain a chest x-ray to rule out any pneumonia or chest infection. Discussed with patient that I will re-evaluate her once this has resulted. Differential Diagnosis Differential Diagnosis: Differential diagnosis: Allergic rhinitis, chronic sinusitis, tonsillitis, acute sinusitis, infectious mononucleosis, seasonal influenza, pertussis, diphtheria, meningococcal disease, viral syndrome, viral bronchitis, RSV, COVID-19 Vital Signs Vital Signs: Vital Signs Temperature 36.6 C 09/16/24 12:26 Pulse Rate 97 09/16/24 12:26 Respiratory Rate 09/16/24 12:26 Blood Pressure 150/104 H 09/16/24 12:26 Pulse Oximetry 98 09/16/24 12:26 Oxygen Delivery Room Air 09/16/24 12:26 Temperature 36.6 C 09/16/24 12:26 Pulse Rate 97 09/16/24 12:26 Respiratory Rate 20 09/16/24 12:26 Blood Pressure 150/104 H 09/16/24 12:26 Pulse Oximetry 98 09/16/24 12:26 Oxygen Delivery Room Air 09/16/24 12:26 Lab Data Labs: Lab Results 09/16/24 09/16/24 Range/Units 12:46 13:02 POC Urine HCG, Qual Negative (Negative) POC SARS CoV-2 Ag Negative (Negative) Imaging Data Radiologist's impression: [facility] [address] [place] [address] XRay Report Signed Patient: Tiffany Lux : 1985 MR#: [id number] Age: 39 Acct:[id number] Loc: [facility] ADM Date: 09/16/24Attending Dr: Ordering Physician: Winifred Patel APRN Date of Service: 09/16/24 Procedure(s): XR chest 2V Accession Number(s): [id number] cc: Winifred Patel [facility]~ Clinical Indication: Decreased breath sounds, shortness of breath PA and lateral views of the chest: Comparison: None Findings: The lungs are clear, without evidence of focal consolidation or pleural effusion. Cardiomediastinal silhouette is within normal limits. Bones and soft tissues are unremarkable. Impression: Normal chest. Reviewed, dictated and finalized at [facility]. Please be advised this is a medical document. It is intended for [id number] communication. It is written in medical language and may contain unfamiliar abbreviations or verbiage. Medical documents are intended to carry relevant information, facts as evident, and the clinical opinion of the practitioner at the time of the encounter. This report may have been done utilizing a voice recognition system. Attempts have been made to correct errors. However, there may be uncorrected grammatical, spelling, and recognition errors present. The file time of this note does not necessarily represent the time of service. Dictated By: Robb Lyles MD 09/16/24 1357 Signed By: <Electronically signed by Robb Lyles MD in OV> Critical Care Time Critical Care Time Critical Care Time: No Discharge Plan Discharge Clinical Impression: Viral URI with cough Patient Disposition: Home Condition: Stable Instructions: Antibiotic Form, Viral Syndrome (ED) Additional Instructions: Viral illness may last between 7-12days; antibiotic is NOT recommended at this time. Recommend antihistamine such as Benadryl at night time and Claritin/Zyrtec/Katy during the day Cough syrup may cause drowsiness; avoid driving or take it at night time. Also, recommend symptomatic treatment includes: rest, fluids, and increase humidity of the air at home. Recommend Acetaminophen or nonsteroidal anti-inflammatory agents (NSAIDs) as directed in the bottle to reduce fever and/pain/headache. Avoid smoking/second-hand smoke. Limit visits to areas with large crowds. Please schedule a follow-up visit with your personal physician for further evaluation and treatment within 3-5days. Including recheck and discussion of your blood pressure. If your symptoms persist, change or worsen significantly before you can contact your personal physician then please, without delay, go to the emergency department for further evaluation. Patient Language: Cypriot Prescriptions: New cetirizine [Zyrtec] 10 mg tablet 10 mg PO DAILY Qty: 30 0RF benzonatate 200 mg capsule 200 mg PO TID PRN (Reason: cough) 10 Days Qty: 30 0RF methylprednisolone 4 mg tablets,dose pack See Rx Instructions PO .COMPLEX Qty: 21 0RF Rx Instructions: for 6 days fluticasone propionate [Flonase Allergy Relief] 50 mcg/actuation spray,suspension 1 spray NASAL DAILY Qty: 15.8 0RF Rx Instructions: administer into each nostril Follow-up/Referrals: PHYSICIAN NOT ON STAFF,NONSTAFF [Primary Care Provider] - Time of Disposition: 14:02
[2024-09-16 13:04] LABS: EDCOVIDSCREEN Negative (Negative)
[2024-09-16 13:06] LABS: BEDSIDEPREGUCG Negative (Negative)
== END 2024-09-16 14:06 | disposition home or self-care (01) ==
PROVIDERS: Emergency Provider Nurse Practitioner Family
DX: J06.9 Acute upper respiratory infection, unspecified (principal); R05.9 Cough, unspecified; Z20.822 Contact with and (suspected) exposure to COVID-19; Z87.891 Personal history of nicotine dependence; D68.51 Activated protein C resistance; E66.9 Obesity, unspecified; Z68.41 Body mass index [BMI] 40.0-44.9, adult
CPT/HCPCS: 71046; 81025; 87426; 99213; G0463